=== PATIENT | female | born 1990 | race Caucasian/White ===

== ENCOUNTER 2017-05-01 17:06 | Emergency (ER) | payer SELFPAY ==
--- NOTE | 2017-05-01 17:54 | ER Document Report ---
ED Medical Screen (RME) - General Chief Complaint: Fainting Stated Complaint: POSSIBLE FAINTING Time Seen by Provider: 05/01/17 17:52 Notes: Patient presents stating that she has had multiple episodes of "passing out". She states she has had these in the past many times. She states she has been told that it is due to anxiety and prescribed Xanax. She states Xanax does help. She also states she has been referred to neurology and told that she has simple seizures was placed on Keppra. Patient states she does not currently take Keppra or Xanax. She states that an EEG was never done to diagnose any type of seizure condition. She denies any other recent systemic symptoms such as fevers cough cold congestion vomiting or diarrhea. No trauma. TRAVEL OUTSIDE OF THE [place] IN LAST 30 DAYS: No - Related Data Allergies/Adverse Reactions: sertraline HCl [From Zoloft] Allergy (Verified 05/01/17 17:10) pomogranate Allergy (Uncoded 05/01/17 17:10) white chocolate Allergy (Uncoded 05/01/17 17:10) Home Medications: Current Home Medications No Home Medications 05/01/17 [History] Past Medical History - Social History Family history: Reviewed & Not Pertinent - Past Medical History Cardiac Medical History: Reports: Hx Hypertension Neurological Medical History: Reports: Hx Seizures - no meds Renal/ Medical History: Denies: Hx Peritoneal Dialysis Psychiatric Medical History: Reports: Hx Anxiety Past Surgical History: Denies: Hx Cholecystectomy - Immunizations Immunizations up to date: Yes Hx Diphtheria, Pertussis, Tetanus Vaccination: Yes Physical Exam - Vital signs Vitals: Temp Pulse Resp BP Pulse Ox 98.1 F 81 18 120/79 97 05/01/17 17:11 05/01/17 17:11 05/01/17 17:11 05/01/17 17:11 05/01/17 17:11 Course - Vital Signs Vital signs: Temp Pulse Resp BP Pulse Ox 98.1 F 81 18 120/79 97 05/01/17 17:11 05/01/17 17:11 05/01/17 17:11 05/01/17 17:11 05/01/17 17:11
[2017-05-01 18:14] LABS: ABSOLUTE BASOPHILS # (AUTO) 0.1 10^3/uL (0.0-0.2); ABSOLUTE EOSINOPHILS # (AUTO) 0.1 10^3/uL (0.0-0.6); ABSOLUTE MONOCYTES (AUTO) 0.9 10^3/uL (0.1-1.4); ABSOLUTE NEUT (AUTO) 9.4 10^3/uL (1.7-8.2); BASOPHILS % (AUTO) 0.5 % (0-2); EOSINOPHILS % (AUTO) 0.6 % (0-6); HEMATOCRIT 45.1 % (36.0-47.0); HEMOGLOBIN 15.1 g/dL (12.0-15.5); HGB HCT DIFFERENCE 0.2; LYMPHOCYTES % (AUTO) 16.2 % (13-45); MEAN CORPUSCULAR HEMOGLOBIN 31.9 pg (27.0-33.4); MEAN CORPUSCULAR HGB CONC 33.6 g/dL (32.0-36.0); MEAN CORPUSCULAR VOLUME 95 fl (80-97); MONOCYTES % (AUTO) 7.2 % (3-13); RED BLOOD COUNT 4.74 10^6/uL (3.72-5.28); RED CELL DISTRIBUTION WIDTH 13.4 % (11.5-14.0); SEGMENTED NEUTROPHILS % (AUTO) 75.5 % (42-78); WHITE BLOOD COUNT 12.4 10^3/uL (4.0-10.5)
[2017-05-01 18:33] LABS: ALANINE AMINOTRANSFERASE 20 U/L (9-52); ALBUMIN 4.6 g/dL (3.5-5.0); ALKALINE PHOSPHATASE 76 U/L (38-126); ANION GAP 10 (5-19); ASPARTATE AMINO TRANSFERASE 19 U/L (14-36); BILIRUBIN,DIRECT 0.4 mg/dL (0.0-0.4); BILIRUBIN,TOTAL 0.4 mg/dL (0.2-1.3); BLOOD UREA NITROGEN 6 mg/dL (7-20); CALCIUM 9.9 mg/dL (8.4-10.2); CARBON DIOXIDE 28 mmol/L (22-30); CHLORIDE 104 mmol/L (98-107); CREATININE RESULT 0.68 mg/dL (0.52-1.25); GLUCOSE 75 mg/dL (75-110); POTASSIUM 4.2 mmol/L (3.6-5.0); SODIUM 141.5 mmol/L (137-145); TOTAL PROTEIN 7.8 g/dL (6.3-8.2)
[2017-05-01 18:34] LABS: APPEARANCE,URINE SLIGHTLY-CLOUDY; BILIRUBIN,URINE NEGATIVE (NEGATIVE); GLUCOSE, URINE NEGATIVE (NEGATIVE); KETONES,URINE NEGATIVE (NEGATIVE); LEUKOCYTE ESTERASE,URINE LARGE (NEGATIVE); NITRITE,URINE NEGATIVE (NEGATIVE); PROTEIN,URINE NEGATIVE (NEGATIVE); URINE SPECIFIC GRAVITY 1.008
--- NOTE | 2017-05-01 19:09 | ER Document Report ---
ED General - General Chief Complaint: Fainting Stated Complaint: POSSIBLE FAINTING Time Seen by Provider: 05/01/17 17:52 Mode of Arrival: Ambulatory Information source: Patient TRAVEL OUTSIDE OF THE [place] IN LAST 30 DAYS: No - HPI Patient complains to provider of: Syncope Onset: This afternoon Onset/Duration: Intermittent, Waxing and waning Quality of pain: No pain Exacerbated by: Other - Emotional stress/anxiety Relieved by: Denies Similar symptoms previously: Yes Recently seen / treated by doctor: No Notes: Patient is a 26-year-old female with a history of anxiety who presents to the emergency room today complaining of possible syncopal episodes, they have been happening for the past month or so, intermittently, she had one again today lasting a couple seconds, she reports having a dj vu feeling just prior to the episode, denies any chest pain or shortness of breath, no headache, no nausea or vomiting, she reports that she had these episodes frequently in the past and was placed on anxiety medication including Xanax, which she ran out of her stop taking approximately 1 month ago when the episode started again, she denies any injury when these episodes occur as she can usually feel them coming on and is able to sit down, her has observed these episodes and reports they last just a few seconds at a time, there is no seizure activity noted at the time - Related Data Allergies/Adverse Reactions: sertraline HCl [From Zoloft] Allergy (Verified 05/01/17 17:10) pomogranate Allergy (Uncoded 05/01/17 17:10) white chocolate Allergy (Uncoded 05/01/17 17:10) Past Medical History - General Information source: Patient - Social History Smoking Status: Unknown if Ever Smoked Family History: Reviewed & Not Pertinent, Other - Aunt has seizures - Past Medical History Cardiac Medical History: Reports: Hx Hypertension Neurological Medical History: Reports: Hx Seizures - no meds Renal/ Medical History: Denies: Hx Peritoneal Dialysis Psychiatric Medical History: Reports: Hx Anxiety Past Surgical History: Denies: Hx Cholecystectomy - Immunizations Immunizations up to date: Yes Hx Diphtheria, Pertussis, Tetanus Vaccination: Yes Review of Systems - Review of Systems Constitutional: No symptoms reported EENT: No symptoms reported Cardiovascular: Syncope Respiratory: No symptoms reported Gastrointestinal: No symptoms reported Genitourinary: No symptoms reported Female Genitourinary: No symptoms reported Musculoskeletal: No symptoms reported Skin: No symptoms reported Hematologic/Lymphatic: No symptoms reported Neurological/Psychological: Anxiety -: Yes All other systems reviewed and negative Physical Exam - Vital signs Vitals: Temp Pulse Resp BP Pulse Ox 98.1 F 81 18 120/79 97 05/01/17 17:11 05/01/17 17:11 05/01/17 17:11 05/01/17 17:11 05/01/17 17:11 Interpretation: Normal - General General appearance: Appears well, Alert - HEENT Head: Normocephalic, Atraumatic Eyes: Normal Pupils: PERRL - Respiratory Respiratory status: No respiratory distress Chest status: Nontender Breath sounds: Normal Chest palpation: Normal - Cardiovascular Rhythm: Regular Heart sounds: Normal auscultation Murmur: No - Abdominal Inspection: Normal Distension: No distension Bowel sounds: Normal Tenderness: Nontender Organomegaly: No organomegaly - Back Back: Normal, Nontender - Extremities General upper extremity: Normal inspection, Nontender, Normal color, Normal ROM , Normal temperature General lower extremity: Normal inspection, Nontender, Normal color, Normal ROM , Normal temperature, Normal weight bearing. No: Prince's sign - Neurological Neuro grossly intact: Yes Cognition: Normal Orientation: AAOx4 Kaia Coma Scale Eye Opening: Spontaneous Kaia Coma Scale Verbal: Oriented Kaia Coma Scale Motor: Obeys Commands Kaia Coma Scale Total: 15 Speech: Normal Motor strength normal: LUE, RUE, LLE, RLE Sensory: Normal - Psychological Associated symptoms: Normal affect, Normal mood - Skin Skin Temperature: Warm Skin Moisture: Dry Skin Color: Normal Course - Re-evaluation Re-evalutation: 05/02/17 00:52 Laboratory findings as well as his physical exam exam findings in the emergency room are unremarkable, symptoms are likely related to anxiety or stress, patient was given a prescription for a small amount of Xanax and advised to follow-up with a mental health provider and a neurologist for further evaluation and treatment, patient acknowledges understanding and agreement with this plan - Vital Signs Vital signs: Temp Pulse Resp BP Pulse Ox 98.4 F 74 16 130/86 H 98 05/01/17 19:17 05/01/17 19:17 05/01/17 19:17 05/01/17 19:17 05/01/17 19:17 - Laboratory Result Diagrams: 05/01/17 18:04 05/01/17 18:04 Laboratory results interpreted by me: 05/01/17 05/01/17 05/01/17 18:02 18:04 18:04 WBC 12.4 H Absolute Neutrophils 9.4 H BUN 6 L Urine Urobilinogen 4.0 H Ur Leukocyte Esterase LARGE H - EKG Interpretation by Me EKG shows normal: Sinus rhythm Rate: Normal Rhythm: NSR Discharge - Discharge Clinical Impression: Anxiety Syncope Qualifiers: Syncope type: unspecified Qualified Code(s): R55 - Syncope and collapse Condition: Stable Disposition: HOME, SELF-CARE Instructions: Anxiety ([facility]), Neurologist, Syncopal Episode ([facility]) Additional Instructions: Follow up with your primary care provider, a neurologist and a mental health professional in one to 2 days. Return to the emergency room immediately if symptoms worsen or any additional concerns. Prescriptions: Alprazolam [Xanax 0.25 mg Tablet] 0.25 mg PO Q6HP PRN #20 tab PRN Reason:
[2017-05-01 19:20] VITALS: BP 130/86
--- NOTE | 2017-05-01 23:17 | EKG REPORT ---
SEVERITY:- NORMAL ECG - SINUS RHYTHM : Confirmed by: Mauricio Willson 01-May-2017 23:16:43
== END 2017-05-01 19:21 | disposition home or self-care (01) ==
LOC: ER 17:06
DX: F41.9 Anxiety disorder, unspecified (principal); T42.4X6A Underdosing of benzodiazepines, initial encounter; Z91.128 Patient's intentional underdosing of medication regimen for other reason; Z91.14 Patient's other noncompliance with medication regimen; R55 Syncope and collapse; I10 Essential (primary) hypertension; Z88.8 Allergy status to other drugs, medicaments and biological substances; Z91.018 Allergy to other foods
CPT/HCPCS: 36415; 80053; 81001; 81025; 85025; 93005; 93010; 99284

== ENCOUNTER 2017-05-26 16:04 | Emergency (ER) | payer SELFPAY ==
--- NOTE | 2017-05-26 17:18 | ER Document Report ---
ED General - General Chief Complaint: Head Injury Stated Complaint: HEAD INJURY Time Seen by Provider: 05/26/17 17:03 Mode of Arrival: Ambulatory Information source: Patient Notes: 26-year-old female presents with complaints of anxiety passing out episodes. Patient notes that when she gets anxious she blacks out, patient also notes she has a seizure disorder is supposed be on Keppra but has not been taking the Keppra. Patient denies any fevers or chills denies any nausea vomiting or diarrhea TRAVEL OUTSIDE OF THE [place] IN LAST 30 DAYS: No - HPI Onset: Other Onset/Duration: Intermittent Quality of pain: No pain Severity: Mild Pain Level: Denies Associated symptoms: None Exacerbated by: Denies Relieved by: Denies Similar symptoms previously: Yes Recently seen / treated by doctor: Yes - Related Data Allergies/Adverse Reactions: sertraline HCl [From Zoloft] Allergy (Verified 05/26/17 16:12) pomogranate Allergy (Uncoded 05/26/17 16:12) white chocolate Allergy (Uncoded 05/26/17 16:12) Past Medical History - Social History Smoking Status: Never Smoker Cigarette use (# per day): No Chew tobacco use (# tins/day): No Smoking Education Provided: No Frequency of alcohol use: None Drug Abuse: None Family History: Reviewed & Not Pertinent, Other - Aunt has seizures - Past Medical History Cardiac Medical History: Reports: Hx Hypertension - pre eclampsia Neurological Medical History: Reports: Hx Seizures - no meds Renal/ Medical History: Denies: Hx Peritoneal Dialysis Psychiatric Medical History: Reports: Hx Anxiety Past Surgical History: Denies: Hx Cholecystectomy - Immunizations Immunizations up to date: Yes Hx Diphtheria, Pertussis, Tetanus Vaccination: Yes Review of Systems - Review of Systems Notes: REVIEW OF SYSTEMS: CONSTITUTIONAL : Denies fever, chills, or sweats. Denies recent illness. EENT: Denies eye, ear, throat, or mouth pain or symptoms. Denies nasal or sinus congestion or discharge. Denies throat, tongue, or mouth swelling or difficulty swallowing. CARDIOVASCULAR: Denies chest pain. Denies palpitations or racing or irregular heart beat. Denies ankle edema. RESPIRATORY: Denies cough, cold, or chest congestion. Denies shortness of breath, difficulty breathing, or wheezing. GASTROINTESTINAL: Denies abdominal pain or distention. Denies nausea, vomiting , or diarrhea. Denies blood in vomitus, stools, or per rectum. Denies black, tarry stools. Denies constipation. GENITOURINARY: Denies difficulty urinating, painful urination, burning, frequency, blood in urine, or discharge. FEMALE GENITOURINARY: Denies vaginal bleeding, heavy or abnormal periods, irregular periods. Denies vaginal discharge or odor. MUSCULOSKELETAL: Denies back or neck pain or stiffness. Denies joint pain or swelling. SKIN: Denies rash, lesions or sores. HEMATOLOGIC : Denies easy bruising or bleeding. LYMPHATIC: Denies swollen, enlarged glands. NEUROLOGICAL: Admits to blacking out episode PSYCHIATRIC: Admits to anxiety ALL OTHER SYSTEMS REVIEWED AND NEGATIVE. PHYSICAL EXAMINATION: GENERAL: Well-appearing, well-nourished and in no acute distress. HEAD: Atraumatic, normocephalic. EYES: Pupils equal round and reactive to light, extraocular movements intact, conjunctiva are normal. ENT: Nares patent, oropharynx clear without exudates. Moist mucous membranes. NECK: Normal range of motion, supple without lymphadenopathy LUNGS: Breath sounds clear to auscultation bilaterally and equal. No wheezes rales or rhonchi. HEART: Regular rate and rhythm without murmurs ABDOMEN: Soft, nontender, nondistended abdomen. No guarding, no rebound. No masses appreciated. Female : deferred Musculoskeletal: Normal range of motion, no pitting or edema. No cyanosis. NEUROLOGICAL: Cranial nerves grossly intact. Normal speech, normal gait. Normal sensory, motor exams PSYCH: Normal mood, normal affect. SKIN: Warm, Dry, normal turgor, no rashes or lesions noted. Dictation was performed using [employer] voice recognition software Physical Exam - Vital signs Vitals: Temp Pulse Resp BP Pulse Ox 98.2 F 74 16 128/89 H 98 05/26/17 16:10 05/26/17 16:10 05/26/17 16:10 05/26/17 16:10 05/26/17 16:10 Course - Re-evaluation Re-evalutation: 05/26/17 17:43 I explained to the patient that we will gladly fill her Keppra, lab work is pending, I will not be prescribing her benzos It is noted that patient had another blackout episode, when nurse went into the room and sternal rubbed the patient she awoke immediately 05/26/17 17:46 05/26/17 18:28 Patient otherwise looks well is in no distress I will have her follow-up with neurology for her syncopal episodes but does not appear to be a life- threatening issue given that it occurs after her anxiety kicks in After performing a Medical Screening Examination, I estimate there is LOW risk for INTRACRANIAL HEMORRHAGE, ISCHEMIC CVA, MALIGNANT DYSRHYTHMIA, ACUTE CORONARY SYNDROME, MENINGITIS, PULMONARY EMBOLISM, or SEPSIS thus I consider the discharge disposition reasonable. I have reevaluated this patient multiple times and no significant life threatening changes are noted. The patient and I have discussed the diagnosis and risks, and we agree with discharging home with close follow-up with the understanding that symptoms and presentations can change. We also discussed returning to the Emergency Department immediately if new or worsening symptoms occur. We have discussed the symptoms which are most concerning (e.g., changing or worsening pain, weakness, vomiting, fever) that necessitate immediate return. - Vital Signs Vital signs: Temp Pulse Resp BP Pulse Ox 98.2 F 74 14 128/91 H 99 05/26/17 16:10 05/26/17 16:10 05/26/17 17:22 05/26/17 17:22 05/26/17 17:22 - Laboratory Result Diagrams: 05/26/17 17:26 05/26/17 17:26 Laboratory results interpreted by me: 05/26/17 05/26/17 17:26 17:26 WBC 14.2 H Seg Neutrophils % 79.3 H Absolute Neutrophils 11.3 H BUN 4 L Discharge - Discharge Clinical Impression: Anxiety, Seizures Syncope Qualifiers: Syncope type: unspecified Qualified Code(s): R55 - Syncope and collapse Condition: Stable Disposition: HOME, SELF-CARE Instructions: Syncopal Episode ([facility]) Additional Instructions: Please follow-up with the care plan provided to you as well as outpatient psychiatric care Prescriptions: Levetiracetam [Keppra 500 mg Tablet] 1,000 mg PO Q12 #60 tablet Referrals: BECCA ON MD [ACTIVE STAFF] - Follow up as needed
[2017-05-26] MEDS ORDERED: LEVETIRACETAM 500 MG TABLET PO ONE (17:38)
[2017-05-26 18:09] LABS: ABSOLUTE LYMPHOCYTES (AUTO) 2.1 10^3/uL (0.5-4.7); ABSOLUTE MONOCYTES (AUTO) 0.7 10^3/uL (0.1-1.4); ABSOLUTE NEUT (AUTO) 11.3 10^3/uL (1.7-8.2); BASOPHILS % (AUTO) 0.3 % (0-2); EOSINOPHILS % (AUTO) 0.1 % (0-6); HEMATOCRIT 43.4 % (36.0-47.0); HEMOGLOBIN 14.9 g/dL (12.0-15.5); HGB HCT DIFFERENCE 1.3; MEAN CORPUSCULAR HEMOGLOBIN 32.1 pg (27.0-33.4); MEAN CORPUSCULAR HGB CONC 34.2 g/dL (32.0-36.0); MEAN CORPUSCULAR VOLUME 94 fl (80-97); MONOCYTES % (AUTO) 5.3 % (3-13); RED BLOOD COUNT 4.63 10^6/uL (3.72-5.28); RED CELL DISTRIBUTION WIDTH 13.1 % (11.5-14.0); SEGMENTED NEUTROPHILS % (AUTO) 79.3 % (42-78); WHITE BLOOD COUNT 14.2 10^3/uL (4.0-10.5)
[2017-05-26 18:24] LABS: ALANINE AMINOTRANSFERASE 30 U/L (9-52); ALBUMIN 4.5 g/dL (3.5-5.0); ALKALINE PHOSPHATASE 101 U/L (38-126); ANION GAP 15 (5-19); ASPARTATE AMINO TRANSFERASE 17 U/L (14-36); BILIRUBIN,DIRECT 0.3 mg/dL (0.0-0.4); BILIRUBIN,TOTAL 0.5 mg/dL (0.2-1.3); BLOOD UREA NITROGEN 4 mg/dL (7-20); CALCIUM 9.8 mg/dL (8.4-10.2); CARBON DIOXIDE 24 mmol/L (22-30); CHLORIDE 103 mmol/L (98-107); CREATININE RESULT 0.68 mg/dL (0.52-1.25); GLUCOSE 89 mg/dL (75-110); POTASSIUM 3.9 mmol/L (3.6-5.0); SODIUM 141.6 mmol/L (137-145); TOTAL PROTEIN 7.8 g/dL (6.3-8.2)
[2017-05-26 18:42] VITALS: BP 131/95
== END 2017-05-26 18:36 | disposition home or self-care (01) ==
LOC: ER 16:04
DX: F41.9 Anxiety disorder, unspecified (principal); R55 Syncope and collapse; G40.909 Epilepsy, unspecified, not intractable, without status epilepticus; T42.6X6A Underdosing of other antiepileptic and sedative-hypnotic drugs, initial encounter; Z91.14 Patient's other noncompliance with medication regimen; Z88.8 Allergy status to other drugs, medicaments and biological substances; Z91.018 Allergy to other foods
CPT/HCPCS: 36415; 80053; 85025; 99284

== ENCOUNTER 2017-06-07 17:14 | Emergency (ER) | payer SELFPAY ==
[2017-06-07] MEDS ORDERED: LEVETIRACETAM 500 MG TABLET PO ONE (17:53)
--- NOTE | 2017-06-07 17:58 | ER Document Report ---
ED Seizure - General Chief Complaint: Seizure Stated Complaint: POSSIBLE SEIZURE Time Seen by Provider: 06/07/17 17:29 Mode of Arrival: Ambulatory Information source: Patient - HPI Patient complains to provider of: History of seizures Quality of pain: Achy Severity: Mild Pain Level: 1 Current seizure medications: Keppra Preceding symptoms/context: Missed dose of meds Character of seizure: Complete loss/conscious Post-ictal symptoms: None Injuries: None Associated Symptoms: None Notes: Patient is a 26-year-old female with a history of seizures who presents today after having a seizure, she ran out of her Keppra a few days ago, her mother witnessed the seizure today and stated it lasted about 5 seconds, she does state she hit her head but has very mild pain and no other symptoms at time of my evaluation, she states she attempted to go to the urgent care center but they were unwilling to provide her with a prescription for her Keppra and sent her to the emergency room instead, she denies any preceding illness, no nausea, vomiting or diarrhea, no fever or chills, she simply states that she missed her medications because she ran out and has been unable to follow-up to get refills - Related Data Allergies/Adverse Reactions: sertraline HCl [From Zoloft] Allergy (Verified 06/07/17 17:20) pomogranate Allergy (Uncoded 06/07/17 17:20) white chocolate Allergy (Uncoded 06/07/17 17:20) Past Medical History - General Information source: Patient - Social History Smoking Status: Unknown if Ever Smoked Family History: Reviewed & Not Pertinent, Other - Aunt has seizures - Past Medical History Cardiac Medical History: Reports: Hx Hypertension - pre eclampsia Neurological Medical History: Reports: Hx Seizures - keppra Renal/ Medical History: Denies: Hx Peritoneal Dialysis Psychiatric Medical History: Reports: Hx Anxiety Past Surgical History: Denies: Hx Cholecystectomy - Immunizations Immunizations up to date: Yes Hx Diphtheria, Pertussis, Tetanus Vaccination: Yes Review of Systems - Review of Systems Constitutional: No symptoms reported EENT: No symptoms reported Cardiovascular: No symptoms reported Respiratory: No symptoms reported Gastrointestinal: No symptoms reported Genitourinary: No symptoms reported Female Genitourinary: No symptoms reported Musculoskeletal: No symptoms reported Skin: No symptoms reported Hematologic/Lymphatic: No symptoms reported Neurological/Psychological: Seizure -: Yes All other systems reviewed and negative Physical Exam - Vital signs Vitals: Temp Pulse Resp BP Pulse Ox 98.5 F 78 14 142/91 H 98 06/07/17 17:21 06/07/17 17:21 06/07/17 17:21 06/07/17 17:21 06/07/17 17:21 Interpretation: Normal - General General appearance: Appears well, Alert - HEENT Head: Normocephalic, Atraumatic Eyes: Normal Pupils: PERRL - Respiratory Respiratory status: No respiratory distress Chest status: Nontender Breath sounds: Normal Chest palpation: Normal - Cardiovascular Rhythm: Regular Heart sounds: Normal auscultation Murmur: No - Abdominal Inspection: Normal Distension: No distension Bowel sounds: Normal Tenderness: Nontender Organomegaly: No organomegaly - Back Back: Normal, Nontender - Extremities General upper extremity: Normal inspection, Nontender, Normal color, Normal ROM , Normal temperature General lower extremity: Normal inspection, Nontender, Normal color, Normal ROM , Normal temperature, Normal weight bearing. No: Prince's sign - Neurological Neuro grossly intact: Yes Cognition: Normal Orientation: AAOx4 Kaia Coma Scale Eye Opening: Spontaneous Kaia Coma Scale Verbal: Oriented Unity Coma Scale Motor: Obeys Commands Kaia Coma Scale Total: 15 Speech: Normal Motor strength normal: LUE, RUE, LLE, RLE Sensory: Normal - Psychological Associated symptoms: Normal affect, Normal mood - Skin Skin Temperature: Warm Skin Moisture: Dry Skin Color: Normal Course - Re-evaluation Re-evalutation: 06/07/17 17:57 Patient with history of seizures, had a short lasting seizure earlier today, recently ran out of her medications, prescription for Keppra, she takes 1000 mg twice a day, she was given prescription and advised to follow-up with her primary care provider and neurologist or return if any additional concerns, I did offer to perform blood work and urine sample while patient is in the department which she declined, she denies any injury seizure today - Vital Signs Vital signs: Temp Pulse Resp BP Pulse Ox 98.5 F 78 14 142/91 H 98 06/07/17 17:21 06/07/17 17:21 06/07/17 17:21 06/07/17 17:21 06/07/17 17:21 Discharge - Discharge Clinical Impression: Seizure Condition: Stable Disposition: HOME, SELF-CARE Instructions: Seizure, Known Epileptic ([facility]) Additional Instructions: Follow up with your primary care provider in one to 2 days. Return to the emergency room immediately if symptoms worsen or any additional concerns. Prescriptions: Levetiracetam [Keppra 500 mg Tablet] 1,000 mg PO Q12 #120 tablet
[2017-06-07 18:08] VITALS: BP 133/91
== END 2017-06-07 18:08 | disposition home or self-care (01) ==
LOC: ER 17:14
DX: R56.9 Unspecified convulsions (principal); T42.6X6A Underdosing of other antiepileptic and sedative-hypnotic drugs, initial encounter; Z91.128 Patient's intentional underdosing of medication regimen for other reason; Z91.14 Patient's other noncompliance with medication regimen; Z88.8 Allergy status to other drugs, medicaments and biological substances; Z91.018 Allergy to other foods
CPT/HCPCS: 99284

== ENCOUNTER 2017-09-11 21:36 | Emergency (ER) | payer SELFPAY ==
[2017-09-11] MEDS ORDERED: LEVETIRACETAM 500 MG TABLET PO ONE (22:45)
[2017-09-11] MEDS ORDERED: DIAZEPAM 5 MG TABLET PO ONE (22:45)
--- NOTE | 2017-09-11 22:47 | ER Document Report ---
ED General - General Chief Complaint: Seizure Stated Complaint: POSSIBLE SEIZURE Time Seen by Provider: 09/11/17 21:46 Notes: Patient is a 27-year-old female with a past medical history of epilepsy and pseudoseizures who presents after having a generalized tonic-clonic seizure lasting approximately 3-4 minutes followed by postictal phase. This was witnessed by her . She has no recollection of the event. She apparently bit her tongue and urinated herself during the episode. Patient notes that she ran out of her Keppra 1 week ago due to lack of access to her primary care physician. She states she believes her last seizure was several months ago. She notes that often when she comes off her seizure medications for any longer than 1 week she tends to have seizures. At time of my assessment she denies any ongoing symptoms other than feeling somewhat anxious. She denies any focal weakness, numbness, headache or altered mental status. TRAVEL OUTSIDE OF THE [place] IN LAST 30 DAYS: No - Related Data Allergies/Adverse Reactions: sertraline HCl [From Zoloft] Allergy (Verified 06/07/17 17:20) pomogranate Allergy (Uncoded 06/07/17 17:20) white chocolate Allergy (Uncoded 06/07/17 17:20) Past Medical History - General Information source: Patient - Social History Smoking Status: Never Smoker Frequency of alcohol use: None Drug Abuse: None Lives with: Spouse/Significant other Family History: Reviewed & Not Pertinent, Other - Aunt has seizures Patient has suicidal ideation: No Patient has homicidal ideation: No - Past Medical History Cardiac Medical History: Reports: Hx Hypertension - pre eclampsia Neurological Medical History: Reports: Hx Seizures - keppra Renal/ Medical History: Denies: Hx Peritoneal Dialysis Psychiatric Medical History: Reports: Hx Anxiety Past Surgical History: Denies: Hx Cholecystectomy - Immunizations Immunizations up to date: Yes Hx Diphtheria, Pertussis, Tetanus Vaccination: Yes Review of Systems - Review of Systems Notes: Constitutional: Negative for fever. HENT: Negative for sore throat. Eyes: Negative for visual changes. Cardiovascular: Negative for chest pain. Respiratory: Negative for shortness of breath. Gastrointestinal: Negative for abdominal pain, vomiting or diarrhea. Genitourinary: Negative for dysuria. Musculoskeletal: Negative for back pain. Skin: Negative for rash. Neurological: Negative for headaches, weakness or numbness. 10 point ROS negative except as marked above and in HPI. Physical Exam - Vital signs Vitals: Resp Pulse Ox 19 98 09/11/17 21:51 09/11/17 21:51 Interpretation: Normal Notes: PHYSICAL EXAMINATION: GENERAL: Well-appearing, well-nourished and in no acute distress. HEAD: Atraumatic, normocephalic. EYES: Pupils equal round and reactive to light, extraocular movements intact, sclera anicteric, conjunctiva are normal. ENT: nares patent, oropharynx clear without exudates. Moist mucous membranes. NECK: Normal range of motion, supple without lymphadenopathy LUNGS: Breath sounds clear to auscultation bilaterally and equal. No wheezes rales or rhonchi. HEART: Regular rate and rhythm without murmurs ABDOMEN: Soft, nontender, normoactive bowel sounds. No guarding, no rebound. No masses appreciated. EXTREMITIES: Normal range of motion, no pitting or edema. No cyanosis. NEUROLOGICAL: Face symmetric. Tongue protrudes midline. Extraocular motions intact. Pupils are 2 mm and equally reactive. Normal speech, normal gait. 5 out of 5 strength in both the distal and proximal upper and lower extremities bilaterally. Sensation is grossly intact throughout. Finger to nose testing normal. Pronator drift normal. PSYCH: Normal mood, normal affect. SKIN: Warm, Dry, normal turgor, no rashes or lesions noted. Course - Re-evaluation Re-evalutation: 09/11/17 22:45 Presentation of well-appearing patient after having a seizure. Patient has a known history of seizures. Patient has been off of her Keppra for 1 week. The patient has returned to baseline without intervention. No focal neurologic deficits. No infectious symptoms, vital sign abnormalities, or evidence of trauma. No indication for laboratories or imaging based on reassuring evaluation and known history of seizures. The patient will be discharged home with recommendations for close follow-up with primary care as well as their neurologist. I will prescribe 3 months of the patient's Keppra and have instructed her follow-up at her earliest ability. At this time will discharge with return precautions and follow-up recommendations. Verbal discharge instructions given a the bedside and opportunity for questions given. Medication warnings reviewed. Patient is in agreement with this plan and has verbalized understanding of return precautions and the need for primary care follow-up in the next 24-72 hours. - Vital Signs Vital signs: Temp Pulse Resp BP Pulse Ox 98.0 F 25 H 122/87 H 100 09/11/17 21:52 09/11/17 23:01 09/11/17 23:01 09/11/17 23:01 Discharge - Discharge Clinical Impression: Seizure, Anxiety Condition: Good Disposition: HOME, SELF-CARE Additional Instructions: Today you had a seizure. It is very important that you do not engage in any activities that could result in severe injury should you have a seizure. Specifically, do not drive a vehicle, go into a body of water, take a bath, climb ladders, or operate any heavy machinery until you have been cleared by your neurologist. Please return to the ED immediately if you have multiple seizures close together, develop a severe headache, weakness, numbness, difficulty speaking, have a seizure in which you do not return to normal within 1 hour of the seizure, or have any other symptoms that are concerning to you. Prescriptions: Levetiracetam [Keppra 500 mg Tablet] 500 mg PO Q12 #60 tablet
[2017-09-11 23:09] VITALS: BP 122/87
== END 2017-09-11 23:22 | disposition home or self-care (01) ==
LOC: ER 21:36
DX: G40.909 Epilepsy, unspecified, not intractable, without status epilepticus (principal); F41.9 Anxiety disorder, unspecified; T42.6X6A Underdosing of other antiepileptic and sedative-hypnotic drugs, initial encounter; Z91.128 Patient's intentional underdosing of medication regimen for other reason
CPT/HCPCS: 99283

== ENCOUNTER 2017-10-14 18:07 | Emergency (ER) | payer MEDICAID, OTHER ==
[2017-10-14] MEDS ORDERED: OXYCODONE HCL IR 5 MG TABLET PO ONE (19:21)
--- NOTE | 2017-10-14 19:52 | RADIOLOGY REPORT (SQ) ---
EXAM DESCRIPTION: ANKLE RIGHT COMPLETE COMPLETED DATE/TIME: 10/14/2017 7:36 pm REASON FOR STUDY: deformity COMPARISON: None. NUMBER OF VIEWS: Three views. TECHNIQUE: AP, lateral, and oblique radiographic images acquired of the right ankle. LIMITATIONS: None. FINDINGS: MINERALIZATION: Normal. BONES: No acute fracture or dislocation. No worrisome bone lesions. JOINTS: No effusions. SOFT TISSUES: Mild lateral soft tissue swelling. OTHER: No other significant finding. IMPRESSION: Mild lateral soft tissue swelling without underlying osseous injury. TECHNICAL DOCUMENTATION: JOB ID: [id number] [employer]- All Rights Reserved
--- NOTE | 2017-10-14 19:54 | ER Document Report ---
HPI - HPI Pain Level: 5 Notes: Patient is a 27-year-old female with a history of epilepsy who presents the ED complaining of right ankle pain status post twist injury. Patient states that she believes she had another seizure and injured her ankle during her episode. Patient states that having seizures not new for her and she takes Keppra for it. Patient states that she feels well otherwise aside from the swelling to her right lateral ankle. Patient has not been able to weight-bear because of the pain. No other concerns or complaints at this time. Patient still able to move her toes. Denies any headache, fever, head injury, neck pain, changes in vision/speech/mentation/hearing, URI, sore throat, chest pain, palpitations, syncope, cough, shortness of breath, wheeze, dyspnea, abdominal pain, nausea/ vomiting/diarrhea, urinary retention, dysuria, hematuria, loss of control of bowel or bladder, numbness/tingling, saddle anesthesia, muscle paralysis/ weakness, or rash. - ROS Systems Reviewed and Negative: Yes All other systems reviewed and negative - REPRODUCTIVE Reproductive: DENIES: : Past Medical History - Social History Smoking Status: Never Smoker Family History: Reviewed & Not Pertinent, Other - Aunt has seizures - Past Medical History Cardiac Medical History: Reports: Hx Hypertension - pre eclampsia Neurological Medical History: Reports: Hx Seizures - keppra Renal/ Medical History: Denies: Hx Peritoneal Dialysis Psychiatric Medical History: Reports: Hx Anxiety Past Surgical History: Denies: Hx Cholecystectomy - Immunizations Immunizations up to date: Yes Hx Diphtheria, Pertussis, Tetanus Vaccination: Yes Vertical Provider Document - CONSTITUTIONAL Agree With Documented VS: Yes Notes: PHYSICAL EXAMINATION: GENERAL: Well-appearing, well-nourished and in no acute distress. LUNGS: Breath sounds clear to auscultation bilaterally and equal. No wheezes rales or rhonchi. HEART: Regular rate and rhythm without murmurs, rubs, gallops. Musculoskeletal: Rt ankle/foot: + swelling lateral malleolus. LROM to passive/ active. Strength 4+/5. + tenderness to the lateral malleolus. Achilles intact. N/V intact distal. No other bony tenderness appreciated. Extremities: No cyanosis, clubbing, or edema b/l. Peripheral pulses 2+. Capillary refill less than 3 seconds. NEUROLOGICAL: Normal speech. Normal sensory, motor exams PSYCH: Normal mood, normal affect. SKIN: Warm, Dry, normal turgor, no rashes or lesions noted. - INFECTION CONTROL TRAVEL OUTSIDE OF THE [place] IN LAST 30 DAYS: No - RESPIRATORY O2 Sat by Pulse Oximetry: 97 Course - Re-evaluation Re-evalutation: 10/14/17 20:01 Patient is an afebrile, well-hydrated, 27-year-old female who presents ED with right lateral ankle pain, suspect strain versus sprain. Vitals are stable. PE is otherwise unremarkable for any focal neurological deficits, neurovascular compromise, obvious tendon/ligament rupture, obvious fracture/dislocation, septic joint. X-ray was unremarkable for any acute pathology aside from soft tissue swelling. Ankle stirrup splint was given as well as crutches. I was told prior to my evaluation that there is a gross deformity so pain medication was ordered at that time. I will not be sending the patient home with narcotics , but rather I will be sending her home with naproxen. Conservative measures for symptoms otherwise. Recheck with your PCM in 3-5 days. Consider consult orthopedics and physical therapy for ongoing/worsening symptoms. Return to the ED with any worsening/concerning symptoms otherwise as reviewed discharge. Patient is in agreement. - Vital Signs Vital signs: Temp Pulse Resp BP Pulse Ox 98.5 F 111 H 18 125/95 H 97 10/14/17 18:13 10/14/17 18:13 10/14/17 18:13 10/14/17 18:13 10/14/17 18:13 Discharge - Discharge Clinical Impression: Right ankle pain Qualifiers: Chronicity: acute Qualified Code(s): M25.571 - Pain in right ankle and joints of right foot Condition: Stable Disposition: HOME, SELF-CARE Instructions: Ankle Stirrup Splint ([facility]), Use of Crutches ([facility]), Ice & Elevation ([facility]), Sprained Ankle ([facility]) Additional Instructions: Rest, Ice, Compression, Elevation Use crutches/splint as directed Tylenol/ibuprofen as needed Light stretches daily Strength exercises as able Moist heat and massage may help F/u with your PCP in 3-5 days for a recheck Consider consult(s) with Orthopedics/physical therapy for ongoing/worsening symptoms Return to the ED with any worsening symptoms and/or development of fever, headache, chest pain, palpitations, syncope, shortness of breath, trouble breathing, abdominal pain, n/v/d, muscle weakness/paralysis, numbness/tingling, swelling, redness, or other worsening symptoms that are concerning to you. Prescriptions: Naproxen 500 mg PO BID PRN #30 tablet PRN Reason: Forms: Elevated Blood Pressure Referrals: [facility] [Provider Group] - Follow up as needed
[2017-10-14] MEDS ORDERED: HYDROCODONE/ACETAMINOPHEN 5-325 MG (6 TAB/ER DISP) PO PRN (20:48)
[2017-10-14 21:11] VITALS: BP 121/76
== END 2017-10-14 21:11 | disposition home or self-care (01) ==
LOC: ER 18:07
DX: M25.571 Pain in right ankle and joints of right foot (principal); G40.909 Epilepsy, unspecified, not intractable, without status epilepticus
CPT/HCPCS: 99283; 73610; L1902

== ENCOUNTER 2018-01-11 07:15 | Emergency (ER) | payer SELFPAY ==
[2018-01-11] MEDS ORDERED: LEVETIRACETAM 500 MG TABLET PO ONE (07:34)
[2018-01-11 07:59] LABS: ABSOLUTE BASOPHILS # (AUTO) 0.1 10^3/uL (0.0-0.2); ABSOLUTE EOSINOPHILS # (AUTO) 0.3 10^3/uL (0.0-0.6); ABSOLUTE LYMPHOCYTES (AUTO) 2.4 10^3/uL (0.5-4.7); ABSOLUTE MONOCYTES (AUTO) 0.9 10^3/uL (0.1-1.4); ABSOLUTE NEUT (AUTO) 8.6 10^3/uL (1.7-8.2); BASOPHILS % (AUTO) 0.5 % (0-2); EOSINOPHILS % (AUTO) 2.1 % (0-6); HEMATOCRIT 44.3 % (36.0-47.0); HEMOGLOBIN 15.3 g/dL (12.0-15.5); LYMPHOCYTES % (AUTO) 19.6 % (13-45); MEAN CORPUSCULAR HEMOGLOBIN 31.8 pg (27.0-33.4); MEAN CORPUSCULAR HGB CONC 34.4 g/dL (32.0-36.0); MEAN CORPUSCULAR VOLUME 92 fl (80-97); MONOCYTES % (AUTO) 7.3 % (3-13); PLATELET COUNT 299 10^3/uL (150-450); RED CELL DISTRIBUTION WIDTH 12.9 % (11.5-14.0); SEGMENTED NEUTROPHILS % (AUTO) 70.5 % (42-78); TOTAL CELLS COUNTED % (AUTO) 100 %; WHITE BLOOD COUNT 12.2 10^3/uL (4.0-10.5)
[2018-01-11 08:15] LABS: ALANINE AMINOTRANSFERASE 30 U/L (9-52); ALBUMIN 4.4 g/dL (3.5-5.0); ALKALINE PHOSPHATASE 89 U/L (38-126); ANION GAP 15 (5-19); ASPARTATE AMINO TRANSFERASE 23 U/L (14-36); BILIRUBIN,DIRECT 0.2 mg/dL (0.0-0.4); BILIRUBIN,TOTAL 0.2 mg/dL (0.2-1.3); BLOOD UREA NITROGEN 10 mg/dL (7-20); CALCIUM 9.7 mg/dL (8.4-10.2); CARBON DIOXIDE 22 mmol/L (22-30); CHLORIDE 106 mmol/L (98-107); GLUCOSE 103 mg/dL (75-110); SODIUM 143.2 mmol/L (137-145); TOTAL PROTEIN 7.8 g/dL (6.3-8.2)
--- NOTE | 2018-01-11 08:16 | ER Document Report ---
ED Seizure - General Chief Complaint: Probable Seizure Stated Complaint: POSSIBLE SEIZURES Time Seen by Provider: 01/11/18 07:20 Mode of Arrival: Ambulatory Information source: Patient Notes: 27-year-old female with a history of seizure disorder that started in 2007 with small seizures was controlled adequately on Keppra 1000 mg twice daily. She was diagnosed when they lived in [place]. She has since moved here and is living with her father and was in the emergency department here at [facility] and was decreased to 500 twice a day and since then she has been having weekly seizures. She ran out of the Keppra on Monday she does not have a PCP or insurance to get the medication and she has had seizures every other day. This morning at 6 she had her normal aura with a taste change in her mouth and had an unwitnessed seizures and when she woke up she had bitten her tongue and had urinated on herself. At this time she has no pain. No fever or chills. No sore throat runny nose or cough. No chest or abdominal pain. No nausea vomiting or diarrhea. No dysuria. No rash. - Related Data Allergies/Adverse Reactions: NSAIDS (Non-Steroidal Anti-Inflamma Allergy (Verified 10/14/17 20:05) sertraline HCl [From Zoloft] Allergy (Verified 10/14/17 18:08) pomogranate Allergy (Uncoded 10/14/17 18:08) white chocolate Allergy (Uncoded 10/14/17 18:08) Past Medical History - General Information source: Patient - Social History Smoking Status: Never Smoker Frequency of alcohol use: None Drug Abuse: None Occupation: Unemployed Lives with: Parents Family History: Reviewed & Not Pertinent, Other - Aunt has seizures - Past Medical History Cardiac Medical History: Reports: Hx Hypertension - pre eclampsia Neurological Medical History: Reports: Hx Seizures - keppra Renal/ Medical History: Denies: Hx Peritoneal Dialysis Psychiatric Medical History: Reports: Hx Anxiety Surgical Hx: Negative - Immunizations Immunizations up to date: Yes Hx Diphtheria, Pertussis, Tetanus Vaccination: Yes Review of Systems - Review of Systems Constitutional: No symptoms reported EENT: No symptoms reported Cardiovascular: No symptoms reported Respiratory: No symptoms reported Gastrointestinal: No symptoms reported Genitourinary: No symptoms reported Female Genitourinary: No symptoms reported Musculoskeletal: No symptoms reported Skin: No symptoms reported Hematologic/Lymphatic: No symptoms reported Neurological/Psychological: See HPI Physical Exam - Vital signs Vitals: Temp Pulse Resp BP Pulse Ox 97.5 F 98 20 142/93 H 100 01/11/18 07:21 01/11/18 07:21 01/11/18 07:21 01/11/18 07:21 01/11/18 07:21 Interpretation: Normal - General General appearance: Appears well, Alert - HEENT Head: Normocephalic, Atraumatic Eyes: Normal Extraocular movements intact: Yes Pupils: PERRL Nerve palsy: No Visual saldana normal: Yes Mouth/Lips: Other - Angular willams latest, blood source that patient states she had when she bit her tongue not seen Pharynx: Normal Neck: Supple. No: Lymphadenopathy - Respiratory Respiratory status: No respiratory distress Chest status: Nontender Breath sounds: Normal Chest palpation: Normal - Cardiovascular Rhythm: Regular Heart sounds: Normal auscultation Murmur: No - Abdominal Inspection: Normal Distension: No distension Bowel sounds: Normal Tenderness: Nontender Organomegaly: No organomegaly - Back Back: Normal, Nontender. No: CVA tenderness - Extremities General upper extremity: Normal inspection, Nontender, Normal color, Normal ROM , Normal temperature General lower extremity: Normal inspection, Nontender, Normal color, Normal ROM , Normal temperature, Normal weight bearing. No: Prince's sign - Neurological Neuro grossly intact: Yes Cognition: Normal Orientation: AAOx4 [place] Coma Scale Eye Opening: Spontaneous [place] Coma Scale Verbal: Oriented [place] Coma Scale Motor: Obeys Commands [place] Coma Scale Total: 15 Speech: Normal Motor strength normal: LUE, RUE, LLE, RLE Sensory: Normal - Psychological Associated symptoms: Normal affect, Anxious. No: Confused - Skin Skin Temperature: Warm Skin Moisture: Dry Skin Color: Normal Skin irregularity: negative: Rash Course - Vital Signs Vital signs: Temp Pulse Resp BP Pulse Ox 97.5 F 98 20 142/93 H 100 01/11/18 07:21 01/11/18 07:21 01/11/18 07:21 01/11/18 07:21 01/11/18 07:21 - Laboratory Result Diagrams: 01/11/18 07:40 01/11/18 07:40 Laboratory results interpreted by me: 01/11/18 01/11/18 07:40 09:20 WBC 12.2 H Absolute Neutrophils 8.6 H Ur Leukocyte Esterase MODERATE H Discharge - Discharge Clinical Impression: Seizure disorder Condition: Good Disposition: HOME, SELF-CARE Instructions: [facility], Seizure, Known Epileptic ([facility]) Additional Instructions: keppra 1000mg bid #60 will be filled, [facility] sent to [facility] see neurologist Prescriptions: Levetiracetam [Keppra 500 mg Tablet] 1,000 mg PO Q12 #120 tablet Referrals: BECCA NO MD [NO LOCAL MD] - Follow up as needed
[2018-01-11 10:08] LABS: APPEARANCE,URINE CLEAR; BILIRUBIN,URINE NEGATIVE (NEGATIVE); COLOR,URINE STRAW; GLUCOSE, URINE NEGATIVE (NEGATIVE); KETONES,URINE NEGATIVE (NEGATIVE); LEUKOCYTE ESTERASE,URINE MODERATE (NEGATIVE); NITRITE,URINE NEGATIVE (NEGATIVE); PROTEIN,URINE NEGATIVE (NEGATIVE); URINE SPECIFIC GRAVITY 1.004; UROBILINOGEN,URINE NEGATIVE mg/dL (<2.0)
[2018-01-11 10:49] VITALS: BP 141/87
== END 2018-01-11 10:49 | disposition home or self-care (01) ==
LOC: ER 07:15
DX: G40.909 Epilepsy, unspecified, not intractable, without status epilepticus (principal)
CPT/HCPCS: 36415; 80053; 81001; 84703; 85025; 99284

== ENCOUNTER 2018-03-18 16:08 | Emergency (ER) | payer SELFPAY ==
[2018-03-18] MEDS ORDERED: LEVETIRACETAM 500 MG/NACL-ISO 500 MG/100 ML RTUPB IV ONE (16:41)
--- NOTE | 2018-03-18 17:03 | ER Document Report ---
ED Seizure - General Chief Complaint: Probable Seizure Stated Complaint: POSSIBLE SEIZURE Time Seen by Provider: 03/18/18 16:24 Mode of Arrival: Medic Information source: Patient Notes: Patient had a witnessed seizure around 3:15 today. Patient was incontinent of urine, vomited and bit her tongue. Patient was observed to have generalized tonic-clonic seizures. Patient does have a history of seizures and has been off of her medication for the past week as she does not have a primary doctor. Patient denies any recent illness. Patient complains of headache at this time patient without any other complaints. No difficulty breathing. - HPI Patient complains to provider of: History of seizures Quality of pain: Achy Pain Level: 2 Episode witnessed (by whom): Yes - Family member Current seizure medications: Keppra Preceding symptoms/context: Missed dose of meds Character of seizure: Generalized shaking, Incontinent bladder Post-ictal symptoms: Headache Injuries: Bit tongue Associated Symptoms: None - Related Data Allergies/Adverse Reactions: NSAIDS (Non-Steroidal Anti-Inflamma Allergy (Verified 10/14/17 20:05) sertraline HCl [From Zoloft] Allergy (Verified 10/14/17 18:08) pomogranate Allergy (Uncoded 10/14/17 18:08) white chocolate Allergy (Uncoded 10/14/17 18:08) Past Medical History - General Information source: Patient - Social History Smoking Status: Never Smoker Chew tobacco use (# tins/day): No Frequency of alcohol use: None Drug Abuse: None Occupation: None Lives with: Family Family History: Reviewed & Not Pertinent, Other - Aunt has seizures Patient has suicidal ideation: No Patient has homicidal ideation: No - Past Medical History Cardiac Medical History: Reports: Hx Hypertension - pre eclampsia Neurological Medical History: Reports: Hx Seizures - keppra Renal/ Medical History: Denies: Hx Peritoneal Dialysis Psychiatric Medical History: Reports: Hx Anxiety Surgical Hx: Negative Past Surgical History: Denies: Hx Cholecystectomy - Immunizations Immunizations up to date: Yes Hx Diphtheria, Pertussis, Tetanus Vaccination: Yes Review of Systems - Review of Systems Constitutional: No symptoms reported. denies: Fever, Recent illness EENT: No symptoms reported Cardiovascular: No symptoms reported. denies: Chest pain Respiratory: No symptoms reported. denies: Cough, Hurts to breathe, Short of breath Gastrointestinal: Vomiting. denies: Abdominal pain Genitourinary: No symptoms reported Female Genitourinary: No symptoms reported. denies: Musculoskeletal: No symptoms reported. denies: Neck pain Skin: No symptoms reported Hematologic/Lymphatic: No symptoms reported Neurological/Psychological: Seizure, Headaches Physical Exam - Vital signs Vitals: Resp BP Pulse Ox 20 131/109 H 96 03/18/18 16:16 03/18/18 16:16 03/18/18 16:16 - General General appearance: Appears well, Alert In distress: None - HEENT Head: Normocephalic, Atraumatic Eyes: Normal Conjunctiva: Normal Nasal: Normal Mouth/Lips: Other - abrasion to left side of tongue Mucous membranes: Normal Pharynx: Normal Neck: Normal, Supple. No: Lymphadenopathy, Meningismus - Respiratory Respiratory status: No respiratory distress Chest status: Nontender Breath sounds: Normal. No: Rales, Rhonchi, Stridor, Wheezing Chest palpation: Normal - Cardiovascular Rhythm: Regular Heart sounds: S1 appreciated, S2 appreciated Murmur: No - Abdominal Inspection: Normal Tenderness: Nontender - Back Back: Normal, Nontender. No: CVA tenderness - Extremities General upper extremity: Normal inspection, Normal ROM General lower extremity: Normal inspection, Normal ROM - Neurological Neuro grossly intact: Yes Cognition: Normal Kaia Coma Scale Eye Opening: Spontaneous [place] Coma Scale Verbal: Oriented [place] Coma Scale Motor: Obeys Commands [place] Coma Scale Total: 15 Speech: Normal. No: Dysarthria Cranial nerves: Normal. No: Facial palsy, Tongue deviation Motor strength normal: LUE, RUE, LLE, RLE - Psychological Associated symptoms: Normal affect, Normal mood - Skin Skin Temperature: Warm Skin Moisture: Dry Skin irregularity: other - abrasion to tongue Course - Re-evaluation Re-evalutation: 03/18/18 18:03 Breakthrough seizure with known seizure disorder and previous neurology evaluation. Patient now returned to neuro baseline. Labs reviewed. No indication of new or acute process. Patient appears safe for discharge with observation and close outpatient followup with primary care provider or neurology. Seizure warnings discussed with patient and family. - Vital Signs Vital signs: Temp Pulse Resp BP Pulse Ox 98.0 F 20 123/91 H 98 03/18/18 16:25 03/18/18 18:01 03/18/18 18:00 03/18/18 18:01 Discharge - Discharge Clinical Impression: Seizure disorder Condition: Stable Disposition: HOME, SELF-CARE Instructions: Seizure, Known Epileptic ([facility]) Additional Instructions: Return immediately for any new or worsening symptoms Followup with your primary care provider, call tomorrow to make a followup appointment Do not drive or operate machinery until cleared to do so by her primary doctor or neurologist. Prescriptions: Levetiracetam [Keppra 500 mg Tablet] 500 mg PO Q12 #60 tablet Referrals: [facility] [Provider Group] - Follow up as needed [facility] [Provider Group] - Follow up as needed
[2018-03-18 18:25] VITALS: BP 123/91
== END 2018-03-18 18:31 | disposition home or self-care (01) ==
LOC: ER 16:08
DX: G40.909 Epilepsy, unspecified, not intractable, without status epilepticus (principal); R32 Unspecified urinary incontinence; R11.10 Vomiting, unspecified; R51 Headache; Z79.899 Other long term (current) drug therapy
CPT/HCPCS: 99284; 96374; J1953

== ENCOUNTER 2018-06-14 10:26 | Emergency (ER) | payer SELFPAY ==
--- NOTE | 2018-06-14 10:56 | ER Document Report ---
ED General - General Mode of Arrival: Ambulatory Information source: Patient TRAVEL OUTSIDE OF THE [place] IN LAST 30 DAYS: No <NGUYEN PETERSEN - Last Filed: 06/14/18 11:51> <DAGOBERTO GALVAN - Last Filed: 06/14/18 11:58> - General Chief Complaint: Probable Seizure Stated Complaint: POSSIBLE SEIZURES Time Seen by Provider: 06/14/18 10:50 Notes: Patient is a 27 year old female with epilepsy presents to the emergency department complaining of a seizure onset approximately 30 minutes ago. Patient states the seizure was witness and she proceeded to vomit after the seizure was over. Patient states this seizure is identical to her previous seizures in the past, further stating nothing was different about the seizure she had today. Patient states she recently ran out of her Keppra (500 mg 2x daily) 4 days ago and does not have a PCP to refill them. Patient denies any injuries from her recent seizure. (NGUYEN PETERSEN) - Related Data Allergies/Adverse Reactions: NSAIDS (Non-Steroidal Anti-Inflamma Allergy (Verified 06/14/18 10:48) sertraline HCl [From Zoloft] Allergy (Verified 06/14/18 10:48) pomogranate Allergy (Uncoded 06/14/18 10:48) white chocolate Allergy (Uncoded 06/14/18 10:48) Past Medical History - General Information source: Patient - Social History Smoking Status: Never Smoker Cigarette use (# per day): No Chew tobacco use (# tins/day): No Smoking Education Provided: No Frequency of alcohol use: None Family History: Reviewed & Not Pertinent, Other - Aunt has seizures - Past Medical History Cardiac Medical History: Reports: Hx Hypertension - pre eclampsia Neurological Medical History: Reports: Hx Seizures - keppra Psychiatric Medical History: Reports: Hx Anxiety - Immunizations Immunizations up to date: Yes Hx Diphtheria, Pertussis, Tetanus Vaccination: Yes <NGUYEN PETERSEN - Last Filed: 06/14/18 11:51> Review of Systems - Review of Systems Constitutional: No symptoms reported EENT: No symptoms reported Cardiovascular: No symptoms reported Respiratory: No symptoms reported Gastrointestinal: See HPI, Vomiting Genitourinary: No symptoms reported Female Genitourinary: No symptoms reported Musculoskeletal: No symptoms reported Skin: No symptoms reported Hematologic/Lymphatic: No symptoms reported Neurological/Psychological: See HPI, Seizure -: Yes All other systems reviewed and negative <NGUYEN PETERSEN - Last Filed: 06/14/18 11:51> Physical Exam <NGUYEN PETERSEN - Last Filed: 06/14/18 11:51> <DAGOBERTO GALVAN - Last Filed: 06/14/18 11:58> - Vital signs Vitals: Temp Pulse Resp BP Pulse Ox 98.7 F 86 14 132/85 H 98 06/14/18 10:36 06/14/18 10:36 06/14/18 10:36 06/14/18 10:36 06/14/18 10:36 - Notes Notes: GENERAL: Alert, interacts well. No acute distress. HEAD: Normocephalic, atraumatic. EYES: Pupils equal, round, and reactive to light. Extraocular movements intact. ENT: Oral mucosa moist, tongue midline. NECK: Full range of motion. Supple. Trachea midline. LUNGS: Clear to auscultation bilaterally, no wheezes, rales, or rhonchi. No respiratory distress. HEART: Regular rate and rhythm. No murmurs, gallops, or rubs. ABDOMEN: Soft, non-tender. Non-distended. Bowel sounds present in all 4 quadrants. EXTREMITIES: Moves all 4 extremities spontaneously. NEUROLOGICAL: Alert and oriented x3. Normal speech. PSYCH: Normal affect, normal mood. SKIN: Warm, dry, normal turgor. No rashes or lesions noted. (NGUYEN PETERSEN) Course - Laboratory Result Diagrams: 06/14/18 11:10 06/14/18 11:10 <NGUYEN PETERSEN - Last Filed: 06/14/18 11:51> - Laboratory Result Diagrams: 06/14/18 11:10 06/14/18 11:10 <DAGOBERTO GALVAN - Last Filed: 06/14/18 11:58> - Re-evaluation Re-evalutation: 06/14/18 11:47 Patient is a known epileptic who has been denied by Medicare multiple times, she is in the process of trying to qualify for the [facility] but she has not yet qualified. Patient has difficulty obtaining her medications because she does not have a primary care physician. Blood work was checked and is normal. At present I feel the risks of a bad outcome to the patient due to untreated epilepsy are far higher than the risks of refilling her medications without direct follow-up. Patient will be given a 30-day prescription with 1 refill of her Keppra. Normally she takes 500 mg twice a day and we will continue this. Patient is discharged to home. Encouraged to return sooner when she is about to run out of her medications so that she does not continue to have tonic-clonic seizures. 06/14/18 11:50 I also wrote her prescription for Diastat and discussed its indications for use and the fact that she needs to inform all of her family members on how to use this and that they should use it if she has a tonic-clonic seizure that lasts for more than 5 minutes patient is also instructed that they should call 911 and have her transported to the hospital any time to use this medication. ( DAGOBERTO GALVAN) - Vital Signs Vital signs: Temp Pulse Resp BP Pulse Ox 98.4 F 80 18 139/90 H 100 06/14/18 11:47 06/14/18 11:47 06/14/18 11:47 06/14/18 11:47 06/14/18 11:47 - Laboratory Laboratory results interpreted by me: 06/14/18 11:10 BUN 5 L Discharge <NGUYEN PETERSEN - Last Filed: 06/14/18 11:51> <DAGOBERTO GALVAN - Last Filed: 06/14/18 11:58> - Discharge Clinical Impression: Seizure, Noncompliance w/medication treatment due to intermit use of medication Condition: Stable Disposition: HOME, SELF-CARE Additional Instructions: The next time you are running low in your medications please try to get them refilled before you run out as you have an increased risk of seizures and increased risk of from seizures when you run out of your medications. You can come to the emergency department, you can go to an urgent care, you can see a primary care physician. Prescriptions: Diazepam [Diastat Acudial] 1 each RC PRN PRN #1 kit PRN Reason: Seizures Levetiracetam [Keppra 500 mg Tablet] 500 mg PO Q12 #60 tablet Scribe Attestation: 06/14/18 11:58 I personally performed the services described in the documentation, reviewed and edited the documentation which was dictated to the scribe in my presence, and it accurately records my words and actions. (DAGOBERTO GALVAN) Scribe Documentation - Scribe Written by Carmen:: Carmen Sanchez, 06/14/2018 11:02 acting as scribe for :: Ayesha <NGUYEN PETERSEN - Last Filed: 06/14/18 11:51>
[2018-06-14 11:29] LABS: ABSOLUTE BASOPHILS # (AUTO) 0.1 10^3/uL (0.0-0.2); ABSOLUTE EOSINOPHILS # (AUTO) 0.2 10^3/uL (0.0-0.6); ABSOLUTE LYMPHOCYTES (AUTO) 1.9 10^3/uL (0.5-4.7); ABSOLUTE MONOCYTES (AUTO) 0.6 10^3/uL (0.1-1.4); ABSOLUTE NEUT (AUTO) 6.5 10^3/uL (1.7-8.2); BASOPHILS % (AUTO) 0.6 % (0-2); EOSINOPHILS % (AUTO) 1.8 % (0-6); HEMATOCRIT 44.7 % (36.0-47.0); HEMOGLOBIN 15.2 g/dL (12.0-15.5); LYMPHOCYTES % (AUTO) 20.3 % (13-45); MEAN CORPUSCULAR HEMOGLOBIN 32.5 pg (27.0-33.4); MEAN CORPUSCULAR HGB CONC 33.9 g/dL (32.0-36.0); MEAN CORPUSCULAR VOLUME 96 fl (80-97); MONOCYTES % (AUTO) 6.1 % (3-13); PLATELET COUNT 282 10^3/uL (150-450); RED BLOOD COUNT 4.67 10^6/uL (3.72-5.28); RED CELL DISTRIBUTION WIDTH 12.7 % (11.5-14.0); SEGMENTED NEUTROPHILS % (AUTO) 71.2 % (42-78); TOTAL CELLS COUNTED % (AUTO) 100 %; WHITE BLOOD COUNT 9.2 10^3/uL (4.0-10.5)
[2018-06-14 11:40] LABS: ALANINE AMINOTRANSFERASE 24 U/L (9-52); ALBUMIN 4.3 g/dL (3.5-5.0); ALKALINE PHOSPHATASE 69 U/L (38-126); ANION GAP 9 (5-19); ASPARTATE AMINO TRANSFERASE 23 U/L (14-36); BILIRUBIN,DIRECT 0.2 mg/dL (0.0-0.4); BILIRUBIN,TOTAL 0.4 mg/dL (0.2-1.3); BLOOD UREA NITROGEN 5 mg/dL (7-20); CALCIUM 9.2 mg/dL (8.4-10.2); CARBON DIOXIDE 26 mmol/L (22-30); CHLORIDE 104 mmol/L (98-107); GLUCOSE 106 mg/dL (75-110); POTASSIUM 4.4 mmol/L (3.6-5.0); SODIUM 138.9 mmol/L (137-145); TOTAL PROTEIN 7.5 g/dL (6.3-8.2)
[2018-06-14 11:49] VITALS: BP 139/90
== END 2018-06-14 11:52 | disposition home or self-care (01) ==
LOC: ER 10:26
DX: R56.9 Unspecified convulsions (principal); R11.0 Nausea; Z91.14 Patient's other noncompliance with medication regimen; I10 Essential (primary) hypertension
CPT/HCPCS: 36415; 80053; 84703; 85025; 99284

== ENCOUNTER 2018-07-05 09:42 | Emergency (ER) | payer SELFPAY ==
[2018-07-05 09:49] VITALS: BP 125/78
[2018-07-05] MEDS ORDERED: HYDROCODONE/ACETAMINOPHEN 5-325 MG TABLET PO ONE (11:17)
--- NOTE | 2018-07-05 11:22 | RADIOLOGY REPORT (SQ) ---
EXAM DESCRIPTION: FOOT RIGHT COMPLETE COMPLETED DATE/TIME: 07/05/2018 11:05 am REASON FOR STUDY: fall, pain from knee to ankle COMPARISON: None. NUMBER OF VIEWS: Three views. TECHNIQUE: AP, lateral and oblique radiographic images acquired of the right foot. LIMITATIONS: None. FINDINGS: MINERALIZATION: Normal. BONES: No acute fracture or dislocation. No worrisome bone lesions. JOINTS: No effusions. SOFT TISSUES: No soft tissue swelling. No foreign body. OTHER: No other significant finding. IMPRESSION: NEGATIVE STUDY OF THE RIGHT FOOT. NO RADIOGRAPHIC EVIDENCE OF ACUTE INJURY. TECHNICAL DOCUMENTATION: JOB ID: [id number] [employer]- All Rights Reserved Reading location - IP/workstation name: [email or web address]
--- NOTE | 2018-07-05 11:23 | RADIOLOGY REPORT (SQ) ---
EXAM DESCRIPTION: TIBIA FIBULA RIGHT COMPLETED DATE/TIME: 07/05/2018 11:05 am REASON FOR STUDY: fall, pain from knee to ankle COMPARISON: None. NUMBER OF VIEWS: Two views. TECHNIQUE: Two radiographic images acquired of the right tibia and fibula to include the knee and an kle in at least one projection. LIMITATIONS: None. FINDINGS: MINERALIZATION: Normal. BONES: No acute fracture or dislocation. No worrisome bone lesions. SOFT TISSUES: No obvious swelling or foreign body. OTHER: No other significant finding. IMPRESSION: NEGATIVE STUDY OF THE RIGHT TIBIA AND FIBULA. NO RADIOGRAPHIC EVIDENCE OF ACUTE INJURY. TECHNICAL DOCUMENTATION: JOB ID: [id number] [employer]- All Rights Reserved Reading location - IP/workstation name: [email or web address]
--- NOTE | 2018-07-05 11:33 | ER Document Report ---
HPI - HPI Pain Level: 5 Notes: Patient is an otherwise healthy 28-year-old female who presents with chief complaint of right lower leg pain. Patient states she was standing on a Halloween decorations when she landed and fell directly onto her right leg last night. Patient reports pain over the tib-fib area. Patient is able to ambulate however she states it is causing her pain. Patient has not taken any medications prior to arrival. - CONSTITUTIONAL Constitutional: DENIES: Fever, Chills - EENT EENT: DENIES: Sore Throat, Ear Pain, Eye problems - NEURO Neurology: DENIES: Headache, Weakness, Vision blurred, Dizzinesss / Vertigo - CARDIOVASCULAR Cardiovascular: DENIES: Chest pain - RESPIRATORY Respiratory: DENIES: Trouble Breathing, Coughing - GASTROINTESTINAL Gastrointestinal: DENIES: Abdominal Pain, Black / Bloody Stools - URINARY Urinary: DENIES: Dysuria, Urgency, Frequency - REPRODUCTIVE Reproductive: DENIES: : - MUSCULOSKELETAL Musculoskeletal: REPORTS: Extremity pain - right lower extremity Past Medical History - General Information source: Patient - Social History Smoking Status: Current Some Day Smoker Chew tobacco use (# tins/day): No Frequency of alcohol use: None Drug Abuse: None Family History: Other - Aunt has seizures Patient has suicidal ideation: No Patient has homicidal ideation: No - Past Medical History Cardiac Medical History: Reports: Hx Hypertension - pre eclampsia Neurological Medical History: Reports: Hx Seizures - keppra Renal/ Medical History: Denies: Hx Peritoneal Dialysis Psychiatric Medical History: Reports: Hx Anxiety Past Surgical History: Denies: Hx Cholecystectomy - Immunizations Immunizations up to date: Yes Hx Diphtheria, Pertussis, Tetanus Vaccination: Yes Vertical Provider Document - CONSTITUTIONAL Notes: PHYSICAL EXAMINATION: GENERAL: Well-appearing, well-nourished and in no acute distress. HEAD: Atraumatic, normocephalic. EYES: Pupils equal round extraocular movements intact, conjunctiva are normal. ENT: Nares patent NECK: Normal range of motion LUNGS: No respiratory distress Musculoskeletal: Normal range of motion, mild swelling noted to right ankle, cap refill less than 3 seconds, normal motor and sensation. NEUROLOGICAL: Normal speech, normal gait. PSYCH: Normal mood, normal affect. SKIN: Warm, Dry, normal turgor, no rashes or lesions noted. - INFECTION CONTROL TRAVEL OUTSIDE OF THE [place] IN LAST 30 DAYS: No Course - Re-evaluation Re-evalutation: To assist with ambulation. Patient verbalizes understanding of instructions. X -rays are negative for any acute findings to include fracture or dislocation. Patient will be discharged home with supportive care. Patient will be provided with crutches - Vital Signs Vital signs: Temp Pulse Resp BP Pulse Ox 98.3 F 98 18 125/78 97 07/05/18 09:47 07/05/18 09:47 07/05/18 09:47 07/05/18 09:47 07/05/18 09:47 Procedures - Immobilization Right leg Immobilizer type: Crutches Discharge - Discharge Clinical Impression: Leg injury Qualifiers: Encounter type: initial encounter Laterality: right Qualified Code(s): S89.91XA - Unspecified injury of right lower leg, initial encounter Condition: Stable Disposition: HOME, SELF-CARE Additional Instructions: SPRAIN: Your injury is a sprain. A sprain results from stretching or tearing of the ligaments, usually from a twisting injury. The ligaments will require time and protection in order to heal properly. Many sprains are quite disabling and should be taken seriously. The usual initial treatment of sprains is cold packs, elevation, and rest of the injured area. Your physician has assessed the seriousness of your ligament injury, and has outlined a treatment plan. Understand that this treatment may change, depending on how you progress. If a re-examination was recommended, it is important that you follow up as instructed. Call the doctor any time if there is severe pain, numbness, or loss of function in the injured area. SPRAINED ANKLE: Your sprained ankle results from stretching or tearing of the ligaments which support the ankle. This usually results from twisting the foot inward and under. The ligaments will require time and protection in order to heal properly. Many ankle sprains are quite disabling, and should be taken seriously. The usual treatment for an ankle sprain is cold packs; protection with tape , splints, or wraps; elevation; and staying off the ankle for at least a day. As the ankle improves, you can walk IF it's not painful to bear weight. Sports are best postponed until healing is complete. More serious sprains usually require strengthening exercises after early healing. Your physician has assessed the seriousness of the ligament injury to your ankle. However, the treatment may change, depending on how your ankle progresses. If further exams were recommended, it is important that you follow through. Call the doctor if your foot becomes numb, painful, or severely swollen. KNEE IMMOBILIZING SPLINT: The knee immobilizing splint will protect the injury while healing begins. This type of splint does not allow the knee to bend at all. No running or sports will be possible. If the splint allows painfree walking, it's giving adequate protection. If there is still significant pain, crutches may be needed as well. Don't do anything that hurts. Adjusted the splint, if necessary. The stiffeners on the sides are attached with Velcro, so they can be easily moved to adjust for thigh and calf size. If you need help with these adjustments, come back. You will lose muscle strength in the thigh while using this splint. The doctor will advise you if it's safe to do isometric knee exercises while you use it. USE OF CRUTCHES: The doctor has recommended that you not bear weight at this time. You will need to use crutches. Adjust the crutches so the tops come to about two inches under the armpit while you are standing upright. Use your hands -- not your armpits -- to support your weight. To get into a chair, support yourself with one crutch on the injured side. Hold the chair with the other hand, then lower yourself while putting all your weight on the good leg. Going up stairs is `good leg up, step up, then bring up crutches and bad leg.' Down stairs is `bad leg and crutches down, then bring good leg down.' If you develop numbness or swelling in an arm or hand, you are using the crutches incorrectly. Return if you are having any problems with the crutches. ICE & ELEVATION: Apply ice packs frequently against the painful area. Many different schedules are recommended, such as "20 minutes on, 20 minutes off" or "one hour ice, two hours rest." If you need to work, you may need to go longer between ice treatments. You should plan to have the area ice packed AT LEAST one- fourth of the time. The ice should be applied over the wrap, tape, or splint, or over a layer of cloth -- not directly against the skin. Some ice bags have a built-in cloth and can be put directly on the skin. Your injured part should be elevated as much as possible over the next 48 hours. Try to keep the injury above the level of the heart. Avoid use of the injured area. Elevation and rest will decrease the swelling. FOLLOW-UP CARE: If you have been referred to a physician for follow-up care, call the physician s office for an appointment as you were instructed or within the next two days. If you experience worsening or a significant change in your symptoms, notify the physician immediately or return to the Emergency Department at any time for re-evaluation. All of your x-rays are negative. Your pain is likely due to spraining of the area. Please use the crutches to keep some weight off of your right leg. Ice and elevate as outlined above, since you are allergic to NSAIDs please take Tylenol 650 mg every 4-6 hours for the pain. It will be very important to ice and elevate since you cannot take ibuprofen. If your pain continues please follow-up with your primary care doctor in the next 3-5 days. Forms: Return to Work
== END 2018-07-05 11:39 | disposition home or self-care (01) ==
LOC: ER 09:42
DX: S89.91XA Unspecified injury of right lower leg, initial encounter (principal); W17.89XA Other fall from one level to another, initial encounter; F17.200 Nicotine dependence, unspecified, uncomplicated
CPT/HCPCS: 99283

== ENCOUNTER 2018-08-16 09:21 | Emergency (ER) | payer SELFPAY ==
[2018-08-16 09:27] VITALS: BP 134/86
--- NOTE | 2018-08-16 09:54 | ER Document Report ---
ED Seizure - General Chief Complaint: Seizure Stated Complaint: POSSIBLE SEIZURE Time Seen by Provider: 08/16/18 09:45 Mode of Arrival: Ambulatory Information source: Patient Notes: Chief complaint: Prescription refill History of complain:( obtained from----patient) 28 years old female with a history of grand mal seizure presents today for prescription refill of Keppra. She has been taking lower dose of Keppra for the last few months and having breakthrough seizures. She has been taking 500 twice a day instead of thousand twice a day. No fever chills or other constitutional symptoms Onset: Long-standing for about 7 years Duration: 7 years Severity: Mild to moderate Quality: On and off seizures Context: Seizure disorders Exacerbating factor and relieving factors: Taking lower dose of Keppra REVIEW OF SYSTEMS: CONSTITUTIONAL : Denies fever, chills, or sweats. Denies recent illness. EENT: Denies eye, ear, throat, or mouth pain or symptoms. Denies nasal or sinus congestion or discharge. Denies throat, tongue, or mouth swelling or difficulty swallowing. CARDIOVASCULAR: Denies chest pain. Denies palpitations or racing or irregular heart beat. Denies ankle edema. RESPIRATORY: Denies cough, cold, or chest congestion. Denies shortness of breath, difficulty breathing, or wheezing. GASTROINTESTINAL: Denies distention. Denies nausea, vomiting, or diarrhea. Denies blood in vomitus, stools, or per rectum. Denies black, tarry stools. Denies constipation. GENITOURINARY: Denies difficulty urinating, painful urination, burning, frequency, blood in urine, or discharge. FEMALE GENITOURINARY: Denies vaginal bleeding, heavy or abnormal periods, irregular periods. Denies vaginal discharge or odor. MUSCULOSKELETAL: Denies back or neck pain or stiffness. Denies joint pain or swelling. SKIN: Denies rash, lesions or sores. HEMATOLOGIC : Denies easy bruising or bleeding. LYMPHATIC: Denies swollen, enlarged glands. NEUROLOGICAL: Denies confusion or altered mental status. Denies passing out or loss of consciousness. Denies dizziness or lightheadedness. Denies headache. Denies weakness or paralysis or loss of use of either side. Denies problems with gait or speech. Denies sensory loss, numbness, or tingling. Denies seizures. PSYCHIATRIC: Denies anxiety or stress. Denies depression, suicidal ideation, or homicidal ideation. ALL OTHER SYSTEMS REVIEWED AND NEGATIVE. PHYSICAL EXAMINATION: GENERAL: Well-appearing, well-nourished and in no acute distress. HEAD: Atraumatic, normocephalic. EYES: Pupils equal round and reactive to light, extraocular movements intact, conjunctiva are normal. ENT: Nares patent, oropharynx clear without exudates. Moist mucous membranes. NECK: Normal range of motion, supple without lymphadenopathy LUNGS: Breath sounds clear to auscultation bilaterally and equal. No wheezes rales or rhonchi. HEART: Regular rate and rhythm without murmurs ABDOMEN: Soft, nontender, nondistended abdomen. No guarding, no rebound. No masses appreciated. Examination of genitals-deferred Musculoskeletal: Normal range of motion, no pitting or edema. No cyanosis. NEUROLOGICAL: Cranial nerves grossly intact. Normal speech, normal gait. Normal sensory, motor exams PSYCH: Normal mood, normal affect. SKIN: Warm, Dry, normal turgor, no rashes or lesions noted. Dictation was performed using [employer] voice recognition software - Related Data Allergies/Adverse Reactions: NSAIDS (Non-Steroidal Anti-Inflamma Allergy (Verified 07/05/18 09:45) sertraline HCl [From Zoloft] Allergy (Verified 07/05/18 09:45) pomogranate Allergy (Uncoded 07/05/18 09:45) white chocolate Allergy (Uncoded 07/05/18 09:45) Past Medical History - Social History Smoking Status: Never Smoker Frequency of alcohol use: None Drug Abuse: None Lives with: Family Family History: Reviewed & Not Pertinent, Other - Aunt has seizures - Past Medical History Cardiac Medical History: Reports: Hx Hypertension - pre eclampsia Neurological Medical History: Reports: Hx Seizures - keppra Renal/ Medical History: Denies: Hx Peritoneal Dialysis Psychiatric Medical History: Reports: Hx Anxiety Past Surgical History: Denies: Hx Cholecystectomy - Immunizations Immunizations up to date: Yes Hx Diphtheria, Pertussis, Tetanus Vaccination: Yes Review of Systems - Review of Systems Notes: Dictated Physical Exam - Vital signs Vitals: Temp Pulse Resp BP Pulse Ox 98.2 F 99 18 134/86 H 98 08/16/18 09:24 08/16/18 09:24 08/16/18 09:24 08/16/18 09:24 08/16/18 09:24 Course - Vital Signs Vital signs: Temp Pulse Resp BP Pulse Ox 98.2 F 99 18 134/86 H 98 08/16/18 09:24 08/16/18 09:24 08/16/18 09:24 08/16/18 09:24 08/16/18 09:24 Discharge - Discharge Clinical Impression: Seizure Condition: Fair Disposition: HOME, SELF-CARE Instructions: Seizure, Known Epileptic ([facility]) Prescriptions: Levetiracetam [Keppra 500 mg Tablet] 1,000 mg PO Q12 #120 tablet
== END 2018-08-16 09:54 | disposition home or self-care (01) ==
LOC: ER 09:21
DX: G40.909 Epilepsy, unspecified, not intractable, without status epilepticus (principal); T42.6X6A Underdosing of other antiepileptic and sedative-hypnotic drugs, initial encounter; Z91.128 Patient's intentional underdosing of medication regimen for other reason; Z91.14 Patient's other noncompliance with medication regimen; Z88.8 Allergy status to other drugs, medicaments and biological substances; Z91.018 Allergy to other foods
CPT/HCPCS: 99283

== ENCOUNTER 2018-11-16 16:34 | Emergency (ER) | payer SELFPAY ==
[2018-11-16 17:13] VITALS: BP 140/93
--- NOTE | 2018-11-16 17:38 | ER Document Report ---
HPI - HPI Patient complains to provider of: Med refill Time Seen by Provider: 11/16/18 17:37 Onset: Yesterday Quality of pain: No pain Severity: None Pain Level: Denies Context: 28-year-old female presented to ED for request of medication refill for her Keppra 500 mg 2 p.o. twice daily. She states she ran out last night. States she has not taken any today. She states she has seizures without her medication and needs it filled. Her prescription has been coming from the ER for a while as she does not have a PCM. She states she is applying for Medicaid and waiting for the approval. She has been instructed that she needs to follow-up with the digital sales planner and get a PCM or [facility] to help her with a prescription so she does not run out of her medication. She states she did not have an seizures for 10 years and has been on the same medication. Patient is alert oriented respirations regular and unlabored speaking in full sentences wa lks with a even steady gait. Associated Symptoms: None Exacerbated by: Denies Relieved by: Denies Similar symptoms previously: Yes Recently seen / treated by doctor: No - ROS ROS below otherwise negative: Yes - CONSTITUTIONAL Constitutional: DENIES: Fever, Chills - EENT EENT: DENIES: Sore Throat, Ear Pain, Nasal Drainage-Clear, Nasal Drainage- Purulent, Congestion, Eye problems - NEURO Neurology: DENIES: Headache, Weakness, Vision blurred, Dizzinesss / Vertigo - CARDIOVASCULAR Cardiovascular: DENIES: Chest pain - RESPIRATORY Respiratory: DENIES: Trouble Breathing, Coughing - GASTROINTESTINAL Gastrointestinal: DENIES: Abdominal Pain, Nausea, Patient vomiting, Diarrhea, Constipation, Black / Bloody Stools - URINARY Urinary: DENIES: Dysuria, Urgency, Frequency - REPRODUCTIVE Reproductive: DENIES: :, Postmenopausal, Abnormal bleeding / discharge - MUSCULOSKELETAL Musculoskeletal: DENIES: Extremity pain, Back Pain, Neck Pain, Swelling - DERM Skin Color: Normal Skin Problems: None Past Medical History - General Information source: Patient - Social History Smoking Status: Never Smoker Frequency of alcohol use: None Drug Abuse: None Lives with: Family Family History: Reviewed & Not Pertinent, Other - Aunt has seizures Patient has suicidal ideation: No Patient has homicidal ideation: No - Past Medical History Cardiac Medical History: Reports: Hx Hypertension - pre eclampsia Pulmonary Medical History: Reports: None EENT Medical History: Reports: None Neurological Medical History: Reports: Hx Seizures - keppra Endocrine Medical History: Reports: None Renal/ Medical History: Reports: None Malignancy Medical History: Reports: None GI Medical History: Reports: None Musculoskeletal Medical History: Reports None Skin Medical History: Reports None Psychiatric Medical History: Reports: Hx Anxiety Traumatic Medical History: Reports: None Infectious Medical History: Reports: None Surgical Hx: Negative Past Surgical History: Reports: None - Immunizations Immunizations up to date: Yes Hx Diphtheria, Pertussis, Tetanus Vaccination: Yes Vertical Provider Document - CONSTITUTIONAL Agree With Documented VS: Yes Exam Limitations: No Limitations General Appearance: WD/WN, No Apparent Distress - INFECTION CONTROL TRAVEL OUTSIDE OF THE [place] IN LAST 30 DAYS: No - HEENT HEENT: Atraumatic, Normal ENT Exam, Normocephalic, PERRLA - NECK Neck: Normal Inspection, Supple - RESPIRATORY Respiratory: Breath Sounds Normal, No Respiratory Distress, Chest Non-Tender - CARDIOVASCULAR Cardiovascular: Regular Rate, Regular Rhythm, No Murmur - GI/ABDOMEN Gastrointestinal: Abdomen Soft, Abdomen Non-Tender, No Organomegaly, Normal Bowel Sounds - REPRODUCTIVE Female Genitalia: Normal Inspection - BACK Back: Normal Inspection - MUSCULOSKELETAL/EXTREMETIES Musculoskeletal/Extremeties: MAEW, FROM, Non-Tender - NEURO Level of Consciousness: Awake, Alert, Appropriate Motor/Sensory: No Motor Deficit, No Sensory Deficit Deep Tendon Reflexes: 2+ - DERM Integumentary: Warm, Dry, No Rash Course - Vital Signs Vital signs: Temp Pulse Resp BP Pulse Ox 98.3 F 93 17 140/93 H 97 11/16/18 17:11 11/16/18 17:11 11/16/18 17:11 11/16/18 17:11 11/16/18 17:11 Discharge - Discharge Clinical Impression: Med refill for Keppra Condition: Stable Disposition: HOME, SELF-CARE Instructions: Family Physicians / Practices Additional Instructions: You were seen today for a medication refill on your seizure medicine Keppra. Very important that you fill this medication before you run out so it is important for you to have a primary care doctor they can keep you up-to-date with your medication. I have given you a card for Javan Araya the lining caser for the emergency room that should be able to help you to ensure you get a primary doctor or someone to follow-up with. FOLLOW-UP CARE: If you have been referred to a physician for follow-up care, call the physicians office for an appointment as you were instructed or within the next two days. If you experience worsening or a significant change in your symptoms, notify the physician immediately or return to the Emergency Department at any time for re-evaluation. Prescriptions: Levetiracetam [Keppra 500 mg Tablet] 1,000 mg PO Q12 #120 tablet Forms: Elevated Blood Pressure Referrals: [facility] [Provider Group] - Follow up as needed BECCA NO MD [NO LOCAL MD] - Follow up as needed
== END 2018-11-16 17:57 | disposition home or self-care (01) ==
LOC: ER 16:34
DX: Z76.0 Encounter for issue of repeat prescription (principal); R56.9 Unspecified convulsions; Z79.899 Other long term (current) drug therapy
CPT/HCPCS: 99281

== ENCOUNTER 2018-12-16 10:47 | Emergency (ER) | payer SELFPAY ==
[2018-12-16 11:11] VITALS: BP 130/83
[2018-12-16] MEDS ORDERED: LEVETIRACETAM 500 MG TABLET PO ONE (11:49)
--- NOTE | 2018-12-16 11:51 | ER Document Report ---
HPI - HPI Time Seen by Provider: 12/16/18 11:40 Pain Level: 4 Notes: Patient is a 28-year-old female with epilepsy presenting to the emergency department requesting a medication refill. Patient states that she takes Keppra. Patient states that she has been out of her Keppra for approximately 1 week. Patient states that she has been seen here in the past for medication refill and was told to not come back for any medication refills. Patient states she had a seizure yesterday and today due to being out of her medications. Patient denies any acute complaints or injuries today. Patient states that she just needs her medication refilled. - REPRODUCTIVE Reproductive: DENIES: : - DERM Skin Color: Normal Past Medical History - General Information source: Patient - Social History Smoking Status: Never Smoker Chew tobacco use (# tins/day): No Frequency of alcohol use: None Drug Abuse: None Family History: Reviewed & Not Pertinent, Other - Aunt has seizures Patient has suicidal ideation: No Patient has homicidal ideation: No - Past Medical History Cardiac Medical History: Reports: Hx Hypertension - pre eclampsia Neurological Medical History: Reports: Hx Seizures - keppra Renal/ Medical History: Denies: Hx Peritoneal Dialysis Psychiatric Medical History: Reports: Hx Anxiety Past Surgical History: Denies: Hx Cholecystectomy - Immunizations Immunizations up to date: Yes Hx Diphtheria, Pertussis, Tetanus Vaccination: Yes Vertical Provider Document - CONSTITUTIONAL Notes: PHYSICAL EXAMINATION: GENERAL: Well-appearing, well-nourished and in no acute distress. HEAD: Atraumatic, normocephalic. EYES: Pupils equal round extraocular movements intact, conjunctiva are normal. ENT: Nares patent NECK: Normal range of motion LUNGS: No respiratory distress Musculoskeletal: Normal range of motion NEUROLOGICAL: Normal speech, normal gait. PSYCH: Normal mood, normal affect. SKIN: Warm, Dry, normal turgor, no rashes or lesions noted. - INFECTION CONTROL TRAVEL OUTSIDE OF THE [place] IN LAST 30 DAYS: No Course - Re-evaluation Re-evalutation: Patient's medication refilled. Patient given contact information for the [facility] so that patient can have proper follow-up and medication management. - Vital Signs Vital signs: Temp Pulse Resp BP Pulse Ox 98.5 F 90 16 130/83 H 97 12/16/18 11:07 12/16/18 11:07 12/16/18 11:07 12/16/18 11:07 12/16/18 11:07 Discharge - Discharge Clinical Impression: Medication refill Condition: Stable Disposition: HOME, SELF-CARE Additional Instructions: You are seen today for medication refill of your Keppra. Please take medications as prescribed. [facility] Prescriptions: Levetiracetam [Keppra 500 mg Tablet] 1,000 mg PO Q12 #120 tablet
== END 2018-12-16 11:54 | disposition home or self-care (01) ==
LOC: ER 10:47
DX: Z76.0 Encounter for issue of repeat prescription (principal); G40.909 Epilepsy, unspecified, not intractable, without status epilepticus; T42.6X6A Underdosing of other antiepileptic and sedative-hypnotic drugs, initial encounter; Z91.128 Patient's intentional underdosing of medication regimen for other reason; Z91.14 Patient's other noncompliance with medication regimen
CPT/HCPCS: 99281

== ENCOUNTER 2019-02-16 15:08 | Emergency (ER) | payer SELFPAY ==
[2019-02-16 15:20] VITALS: BP 136/98
[2019-02-16] MEDS ORDERED: LEVETIRACETAM 500 MG TABLET PO ONE (15:43)
--- NOTE | 2019-02-16 15:47 | ER Document Report ---
HPI - HPI Patient complains to provider of: Medication refill Time Seen by Provider: 02/16/19 15:40 Onset: Yesterday Quality of pain: No pain Pain Level: 0 Context: Patient presents to the emergency department with reports she had a seizure last night. Patient reports that she has a history of seizures. She ran out of her meds yesterday and this is typically what happens when she runs out of her Keppra. Patient reports she has been seen at the [facility] is hoping she will receive Medicaid soon. Otherwise she comes here for medication refill. She denies all symptoms. Such as fever vomiting diarrhea. Reports no seizures today. Her seizure last night was witnessed by her sister. She reports that the patient gets really confused and cannot talk for a few minutes. She reports that last for like 5 minutes. Sister also reports that she has tonic-clonic seizures but did not experience at last night. Associated Symptoms: None Exacerbated by: Denies Relieved by: Denies Similar symptoms previously: Yes Recently seen / treated by doctor: Yes - REPRODUCTIVE Reproductive: DENIES: : - DERM Skin Color: Normal Past Medical History - General Information source: Patient Last Menstrual Period: january 2019 - Social History Smoking Status: Never Smoker Chew tobacco use (# tins/day): No Frequency of alcohol use: None Drug Abuse: None Lives with: Family Family History: Reviewed & Not Pertinent, Other - Aunt has seizures Patient has suicidal ideation: No Patient has homicidal ideation: No - Past Medical History Cardiac Medical History: Reports: Hx Hypertension - pre eclampsia Neurological Medical History: Reports: Hx Seizures - keppra Renal/ Medical History: Denies: Hx Peritoneal Dialysis Psychiatric Medical History: Reports: Hx Anxiety Surgical Hx: Negative Past Surgical History: Denies: Hx Cholecystectomy - Immunizations Immunizations up to date: Yes Hx Diphtheria, Pertussis, Tetanus Vaccination: Yes Vertical Provider Document - CONSTITUTIONAL Agree With Documented VS: Yes Exam Limitations: No Limitations General Appearance: WD/WN, No Apparent Distress - INFECTION CONTROL TRAVEL OUTSIDE OF THE [place] IN LAST 30 DAYS: No - HEENT HEENT: Atraumatic, Normocephalic - NECK Neck: Normal Inspection, Supple. negative: Lymphadenopathy-Left, Lymphadenopathy-Right - RESPIRATORY Respiratory: Breath Sounds Normal, No Respiratory Distress - CARDIOVASCULAR Cardiovascular: Regular Rate, Regular Rhythm - GI/ABDOMEN Gastrointestinal: Abdomen Soft, Abdomen Non-Tender - MUSCULOSKELETAL/EXTREMETIES Musculoskeletal/Extremeties: SARA NORWOOD - NEURO Level of Consciousness: Awake, Alert, Appropriate Motor/Sensory: No Motor Deficit - DERM Integumentary: Warm, Dry Course - Re-evaluation Re-evalutation: 02/16/19 15:54 Message was left the ED child support case officer telephone. I also gave this patient the ED child support case officer card. She was instructed to follow-up with her and to continue to talk with the [facility] to get her Medicaid so she can have a primary care provider. She verbalized understanding. Dictation of this chart was performed using voice recognition software; therefore, there may be some unintended grammatical errors. - Vital Signs Vital signs: Temp Pulse Resp BP Pulse Ox 98 F 93 18 136/98 H 96 02/16/19 15:18 02/16/19 15:18 02/16/19 15:18 02/16/19 15:18 02/16/19 15:18 Discharge - Discharge Clinical Impression: Medication refill, History of seizures Condition: Stable Disposition: HOME, SELF-CARE Instructions: Anti-Convulsant Medication ([facility]), Seizure, Known Epileptic ([facility]) Additional Instructions: *You have been evaluated for medication refill history of seizures *Take medication as prescribed *Follow up with the [facility] within 5 days for recheck and also to check on your Medicaid status. *Return to ED for worsening condition, changes, needs Monitor your blood pressure. Your blood pressure was elevated today. This may be because you were anxious, in pain or because you need medication. It is important to follow up with your primary care provider for full evaluation. Prescriptions: Levetiracetam [Keppra] 1,000 mg PO BID #60 tablet Forms: Elevated Blood Pressure
== END 2019-02-16 15:55 | disposition home or self-care (01) ==
LOC: ER 15:08
DX: Z76.0 Encounter for issue of repeat prescription (principal); R56.9 Unspecified convulsions; Z79.899 Other long term (current) drug therapy; I10 Essential (primary) hypertension
CPT/HCPCS: 99281

== ENCOUNTER 2019-03-21 18:50 | Emergency (ER) | payer SELFPAY ==
[2019-03-21] MEDS ORDERED: LEVETIRACETAM 500 MG TABLET PO ONE (20:48)
--- NOTE | 2019-03-21 20:51 | ER Document Report ---
ED Medical Screen (RME) - General Chief Complaint: Seizure Stated Complaint: HEADACHE,DIZZY/POST SEIZURE Time Seen by Provider: 03/21/19 20:42 Notes: Patient is a 28-year-old female with past medical history of seizures who presents to the emergency department after having a seizure at home. She states that she took her Keppra this morning, but only had half the dose and this afternoon she ended up having a seizure. Denies a [place] seizure, but mother is at bedside and states that she did have seizure activity. The seizure happened about 50 minutes prior to arrival to here to the emergency department. Patient denies any long periods of loss of consciousness. Patient is alert and oriented. Patient normally takes 1000 mg of Keppra twice daily. Patient states that she has not been able to get insurance at this time and was told when she runs out of her medication to come back here to the emergency department to have it refilled. Denies any other past medical history. Exam: Alert and oriented, no neurological deficits noted. I have greeted and performed a rapid initial assessment of this patient. A comprehensive ED assessment and evaluation of the patient, analysis of test results and completion of medical decision making process will be conducted by an additional ED providers. TRAVEL OUTSIDE OF THE [place] IN LAST 30 DAYS: No - Related Data Allergies/Adverse Reactions: NSAIDS (Non-Steroidal Anti-Inflamma Allergy (Verified 03/21/19 18:54) sertraline HCl [From Zoloft] Allergy (Verified 03/21/19 18:54) pomogranate Allergy (Uncoded 03/21/19 18:54) white chocolate Allergy (Uncoded 03/21/19 18:54) Past Medical History - Social History Family history: Reviewed & Not Pertinent - Past Medical History Cardiac Medical History: Reports: Hx Hypertension - pre eclampsia Neurological Medical History: Reports: Hx Seizures - keppra Renal/ Medical History: Denies: Hx Peritoneal Dialysis Psychiatric Medical History: Reports: Hx Anxiety Past Surgical History: Denies: Hx Cholecystectomy - Immunizations Immunizations up to date: Yes Hx Diphtheria, Pertussis, Tetanus Vaccination: Yes Physical Exam - Vital signs Vitals: Temp Pulse Resp BP Pulse Ox 98.8 F 89 20 135/95 H 97 03/21/19 19:03 03/21/19 19:03 03/21/19 19:03 03/21/19 19:03 03/21/19 19:03 Course - Vital Signs Vital signs: Temp Pulse Resp BP Pulse Ox 98.8 F 89 20 135/95 H 97 03/21/19 19:03 03/21/19 19:03 03/21/19 19:03 03/21/19 19:03 03/21/19 19:03
[2019-03-21 21:14] LABS: ABSOLUTE BASOPHILS # (AUTO) 0.1 10^3/uL (0.0-0.2); ABSOLUTE EOSINOPHILS # (AUTO) 0.1 10^3/uL (0.0-0.6); ABSOLUTE LYMPHOCYTES (AUTO) 2.1 10^3/uL (0.5-4.7); ABSOLUTE MONOCYTES (AUTO) 0.5 10^3/uL (0.1-1.4); ABSOLUTE NEUT (AUTO) 8.6 10^3/uL (1.7-8.2); BASOPHILS % (AUTO) 0.5 % (0-2); EOSINOPHILS % (AUTO) 1.2 % (0-6); HEMATOCRIT 43.9 % (36.0-47.0); HEMOGLOBIN 14.8 g/dL (12.0-15.5); LYMPHOCYTES % (AUTO) 18.6 % (13-45); MEAN CORPUSCULAR HEMOGLOBIN 31.9 pg (27.0-33.4); MEAN CORPUSCULAR HGB CONC 33.7 g/dL (32.0-36.0); MEAN CORPUSCULAR VOLUME 95 fl (80-97); MONOCYTES % (AUTO) 4.7 % (3-13); PLATELET COUNT 336 10^3/uL (150-450); RED BLOOD COUNT 4.64 10^6/uL (3.72-5.28); RED CELL DISTRIBUTION WIDTH 13.1 % (11.5-14.0); TOTAL CELLS COUNTED % (AUTO) 100 %; WHITE BLOOD COUNT 11.5 10^3/uL (4.0-10.5)
[2019-03-21 21:31] LABS: ALANINE AMINOTRANSFERASE 24 U/L (9-52); ALBUMIN 4.6 g/dL (3.5-5.0); ALKALINE PHOSPHATASE 83 U/L (38-126); ANION GAP 9 (5-19); ASPARTATE AMINO TRANSFERASE 22 U/L (14-36); BILIRUBIN,DIRECT 0.2 mg/dL (0.0-0.4); BILIRUBIN,TOTAL 0.3 mg/dL (0.2-1.3); BLOOD UREA NITROGEN 7 mg/dL (7-20); CALCIUM 9.8 mg/dL (8.4-10.2); CARBON DIOXIDE 26 mmol/L (22-30); CHLORIDE 104 mmol/L (98-107); GLUCOSE 103 mg/dL (75-110); POTASSIUM 4.1 mmol/L (3.6-5.0); SODIUM 139.3 mmol/L (137-145); TOTAL PROTEIN 7.6 g/dL (6.3-8.2)
--- NOTE | 2019-03-22 00:35 | ER Document Report ---
ED General - General Chief Complaint: Seizure Stated Complaint: HEADACHE,DIZZY/POST SEIZURE Time Seen by Provider: 03/21/19 20:42 Primary Care Provider: MARIA ALEJANDRA [facility] [Provider Group] - 03/25/19 [facility] [Provider Group] - 03/25/19 Notes: Patient is a 28-year-old female with past medical history of seizures who presents to the emergency department after having a seizure at home. She states that she took her Keppra this morning, but only had half the dose and this afternoon she ended up having a seizure. Denies a [place] mall seizure, but mother is at bedside and states that she did have seizure activity. The seizure happened about 50 minutes prior to arrival to here to the emergency department. Patient denies any long periods of loss of consciousness. Patient is alert and oriented. Patient normally takes 1000 mg of Keppra twice daily. Patient states that she has not been able to get insurance at this time and was told when she runs out of her medication to come back here to the emergency department to have it refilled. Denies any other past medical history. TRAVEL OUTSIDE OF THE [place] IN LAST 30 DAYS: No - Related Data Allergies/Adverse Reactions: NSAIDS (Non-Steroidal Anti-Inflamma Allergy (Verified 03/21/19 18:54) sertraline HCl [From Zoloft] Allergy (Verified 03/21/19 18:54) pomogranate Allergy (Uncoded 03/21/19 18:54) white chocolate Allergy (Uncoded 03/21/19 18:54) Past Medical History - Social History Smoking Status: Unknown if Ever Smoked Family History: Reviewed & Not Pertinent, Other - Aunt has seizures - Past Medical History Cardiac Medical History: Reports: Hx Hypertension - pre eclampsia Neurological Medical History: Reports: Hx Seizures - keppra Renal/ Medical History: Denies: Hx Peritoneal Dialysis Psychiatric Medical History: Reports: Hx Anxiety Past Surgical History: Denies: Hx Cholecystectomy - Immunizations Immunizations up to date: Yes Hx Diphtheria, Pertussis, Tetanus Vaccination: Yes Review of Systems - Review of Systems Notes: REVIEW OF SYSTEMS: CONSTITUTIONAL : Denies recent illness. Denies recent unintentional weight loss. Denies fever, chills, or sweats. EENT: Denies eye, ear, throat, or mouth pain, discharge, or symptoms. Denies nasal or sinus congestion. CARDIOVASCULAR: Denies chest pain. RESPIRATORY: Denies shortness of breath, cough, congestion, difficulty breathing, or wheezing. GASTROINTESTINAL: Denies nausea, vomiting, and diarrhea. Denies abdominal pain. Denies constipation. GENITOURINARY: Denies difficulty urinating, burning, blood in urine, urgency or frequency. MUSCULOSKELETAL: Denies neck and back pain. Denies joint pain or swelling. SKIN: Denies rash, itchiness, or lesions HEMATOLOGIC : Denies easy bruising or bleeding. LYMPHATIC: Denies swollen, painful, enlarged glands. NEUROLOGICAL: See HPI PSYCHIATRIC: Denies stress, anxiety, alteration in sleep patterns, or depression. All other systems reviewed and negative. Physical Exam - Vital signs Vitals: Temp Pulse Resp BP Pulse Ox 98.8 F 89 20 135/95 H 97 03/21/19 19:03 03/21/19 19:03 03/21/19 19:03 03/21/19 19:03 03/21/19 19:03 - Notes Notes: PHYSICAL EXAMINATION: GENERAL: Appears well, healthy, well-nourished, no acute distress. HEAD: Normocephalic, atraumatic. EYES: PERRL, conjunctiva normal, all extraocular movements intact, sclera nonic teric ENT: Moist mucous membranes. NECK: Supple, no noticeable swelling, redness, rash. Normal range of motion. LUNGS: Equal breath sounds bilaterally and clear to auscultation. No wheezes rales or rhonchi. CARDIOVASCULAR: S1-S2, regular rate, regular rhythm. Radial pulses 2+, normal. ABDOMEN: Normoactive bowel sounds. Soft, nontender, no guarding, no rebound tenderness, and no masses palpated. EXTREMITIES: Normal strength and range of motion, no pitting or edema. No cyanosis. NEUROLOGICAL: Moves all extremities upon command. Strength 5/5 in all extremities. PSYCH: Normal mood, normal affect. SKIN: Warm, dry. No rash, lesions, ulcerations noted. Normal skin turgor. Course - Re-evaluation Re-evalutation: 03/22/19 00:35 Patient's labs are unremarkable at this time. No neurological deficits noted. Patient did not have a seizure while she was here in the emergency department. I will refill her Keppra. I have advised the patient that once she gets her health insurance to establish a primary care provider and be referred out to a neurologist in the area. She is in agreement with this plan. Follow-up precautions were given. Verbal discharge instructions were given to the patient. They verbalized understanding. They are stable for discharge. - Vital Signs Vital signs: Temp Pulse Resp BP Pulse Ox 98.0 F 81 16 136/85 H 97 03/22/19 00:46 03/22/19 00:46 03/22/19 00:46 03/22/19 00:46 03/22/19 00:46 - Laboratory Result Diagrams: 03/21/19 20:56 03/21/19 20:56 Laboratory results interpreted by me: 03/21/19 20:56 WBC 11.5 H Absolute Neutrophils 8.6 H Discharge - Discharge Clinical Impression: Seizure, History of seizure disorder Condition: Stable Disposition: HOME, SELF-CARE Additional Instructions: You are seen today in the emergency department after having a seizure. Your medication has been refilled. Please follow-up with 1 of the clinics below in regards to this visit. Once you have your insurance in place, please get a referral to an neurologist to manage your medication. Prescriptions: Levetiracetam [Keppra 500 mg Tablet] 1,000 mg PO Q12 #120 tablet Referrals: [facility] [Provider Group] - 03/25/19 [facility] [Provider Group] - 03/25/19
[2019-03-22 00:48] VITALS: BP 136/85
== END 2019-03-22 00:48 | disposition home or self-care (01) ==
LOC: ER 18:50
DX: R56.9 Unspecified convulsions (principal); R51 Headache; R42 Dizziness and giddiness
CPT/HCPCS: 36415; 80053; 85025; 99284

== ENCOUNTER 2019-10-13 10:33 | Emergency (ER) | payer SELFPAY ==
--- NOTE | 2019-10-13 10:56 | ER Document Report ---
ED Medical Screen (RME) - General Chief Complaint: Probable Seizure Stated Complaint: POSSIBLE SEIZURE Time Seen by Provider: 10/13/19 10:50 Mode of Arrival: Ambulatory Information source: Patient Notes: 29-year-old female patient presents emergency department with chief complaint of seizures. Patient reports history of epilepsy, states she usually takes Keppra, states she has not had it since Monday. Patient reports she has no insurance and has not been able to see a doctor to get a refill. She reports having a seizure last night that she believes was triggered by lights and sounds from her children's toys. She states today she continues to not feel well and keeps "blacking out". She states when she is on her Keppra her seizures are managed very well. Exam: Patient alert, oriented, answering all questions appropriately, no acute distress noted. Lung sounds clear and equal bilaterally. I have greeted and performed a rapid initial assessment of this patient. A comprehensive ED assessment and evaluation of the patient, analysis of test results and completion of the medical decision making process will be conducted by additional ED providers. I have specifically instructed the patient or family members with the patient to immediately return to any nursing staff should anything change in the patient's condition or with their chief complaint. TRAVEL OUTSIDE OF THE [place] IN LAST 30 DAYS: No - Related Data Allergies/Adverse Reactions: NSAIDS (Non-Steroidal Anti-Inflamma Allergy (Verified 03/21/19 18:54) sertraline HCl [From Zoloft] Allergy (Verified 03/21/19 18:54) pomogranate Allergy (Uncoded 03/21/19 18:54) white chocolate Allergy (Uncoded 03/21/19 18:54) Past Medical History - Social History Family history: Reviewed & Not Pertinent - Past Medical History Cardiac Medical History: Reports: Hx Hypertension - pre eclampsia Neurological Medical History: Reports: Hx Seizures - keppra Renal/ Medical History: Denies: Hx Peritoneal Dialysis Psychiatric Medical History: Reports: Hx Anxiety Past Surgical History: Denies: Hx Cholecystectomy - Immunizations Immunizations up to date: Yes Hx Diphtheria, Pertussis, Tetanus Vaccination: Yes
[2019-10-13 11:24] LABS: ABSOLUTE BASOPHILS # (AUTO) 0.1 10^3/uL (0.0-0.2); ABSOLUTE EOSINOPHILS # (AUTO) 0.2 10^3/uL (0.0-0.6); ABSOLUTE LYMPHOCYTES (AUTO) 1.7 10^3/uL (0.5-4.7); ABSOLUTE MONOCYTES (AUTO) 0.4 10^3/uL (0.1-1.4); ABSOLUTE NEUT (AUTO) 4.4 10^3/uL (1.7-8.2); BASOPHILS % (AUTO) 1.1 % (0-2); EOSINOPHILS % (AUTO) 2.3 % (0-6); HEMATOCRIT 42.4 % (36.0-47.0); HEMOGLOBIN 14.5 g/dL (12.0-15.5); LYMPHOCYTES % (AUTO) 25.5 % (13-45); MEAN CORPUSCULAR HEMOGLOBIN 32.6 pg (27.0-33.4); MEAN CORPUSCULAR HGB CONC 34.2 g/dL (32.0-36.0); MEAN CORPUSCULAR VOLUME 96 fl (80-97); MONOCYTES % (AUTO) 6.2 % (3-13); PLATELET COUNT 242 10^3/uL (150-450); RED BLOOD COUNT 4.43 10^6/uL (3.72-5.28); RED CELL DISTRIBUTION WIDTH 12.8 % (11.5-14.0); SEGMENTED NEUTROPHILS % (AUTO) 64.9 % (42-78); TOTAL CELLS COUNTED % (AUTO) 100 %; WHITE BLOOD COUNT 6.9 10^3/uL (4.0-10.5)
[2019-10-13 11:42] LABS: ALBUMIN 4.2 g/dL (3.5-5.0); ALKALINE PHOSPHATASE 82 U/L (38-126); ANION GAP 10 (5-19); ASPARTATE AMINO TRANSFERASE 18 U/L (14-36); BILIRUBIN,DIRECT 0.3 mg/dL (0.0-0.4); BILIRUBIN,TOTAL 0.3 mg/dL (0.2-1.3); BLOOD UREA NITROGEN 9 mg/dL (7-20); CALCIUM 9.3 mg/dL (8.4-10.2); CARBON DIOXIDE 25 mmol/L (22-30); CHLORIDE 103 mmol/L (98-107); GLUCOSE 96 mg/dL (75-110); POTASSIUM 4.1 mmol/L (3.6-5.0); TOTAL PROTEIN 7.5 g/dL (6.3-8.2)
[2019-10-13] MEDS ORDERED: LEVETIRACETAM 1000 MG/NACL-ISO 1,000 MG/100 ML RTUPB IV ONE (11:43)
--- NOTE | 2019-10-13 12:05 | ER Document Report ---
ED General - General Chief Complaint: Seizure Stated Complaint: POSSIBLE SEIZURE Time Seen by Provider: 10/13/19 10:50 Mode of Arrival: Ambulatory Notes: HPI: 29-year-old female with a long history of seizures who has been out of her Keppra seizure medication for 1 week secondary to lack of a primary care provider. She does not have insurance. She follows the [email or web address] prescription plan. She states that she believes she has had 2 seizures over the last 24 hours. Both of them were while the patient was laying down. Patient denies any pain, headache, chest pain, fevers, weakness or numbness. No incont inence or dysuria. ROS: See HPI All other review of systems reviewed and otherwise negative Reviewed vital signs and nursing note as charted by RN. PHYSICAL EXAM: CONSTITUTIONAL: Alert and oriented and responds appropriately to questions. Well-appearing; well-nourished HEAD: Normocephalic; atraumatic EYES: PERRL; no nystagmus, sclerae non-icteric ENT: Normal nose; no rhinorrhea; moist mucous membranes; pharynx without lesions noted NECK: Supple without meningismus; non-tender; no cervical lymphadenopathy, no masses CARD: Regular rate and rhythm; no murmurs; symmetric distal pulses RESP: Normal chest excursion without splinting or tachypnea; breath sounds clear and equal bilaterally ABD/GI: Normal bowel sounds; non-distended; soft, non-tender BACK: The back appears normal and is non-tender to palpation EXT: Normal ROM in all joints; non-tender to palpation; no edema SKIN: No acute lesions noted NEURO: CN 2-12 intact; 5/5 bilateral upper and lower extremity strength with sensation intact to light touch PSYCH: The patient's mood and manner are appropriate. Grooming and personal hygiene are appropriate. TRAVEL OUTSIDE OF THE [place] IN LAST 30 DAYS: No - Related Data Allergies/Adverse Reactions: NSAIDS (Non-Steroidal Anti-Inflamma Allergy (Verified 10/13/19 11:09) sertraline HCl [From Zoloft] Allergy (Verified 10/13/19 11:09) pomogranate Allergy (Uncoded 10/13/19 11:09) white chocolate Allergy (Uncoded 10/13/19 11:09) Home Medications: Keppra Past Medical History - General Information source: Patient - Social History Smoking Status: Never Smoker Family History: Reviewed & Not Pertinent, Other - Aunt has seizures Patient has suicidal ideation: No Patient has homicidal ideation: No - Past Medical History Cardiac Medical History: Reports: Hx Hypertension - pre eclampsia Neurological Medical History: Reports: Hx Seizures - keppra Renal/ Medical History: Denies: Hx Peritoneal Dialysis Psychiatric Medical History: Reports: Hx Anxiety Past Surgical History: Denies: Hx Cholecystectomy - Immunizations Immunizations up to date: Yes Hx Diphtheria, Pertussis, Tetanus Vaccination: Yes Physical Exam - Vital signs Vitals: Temp Pulse Resp BP Pulse Ox 97.7 F 85 20 137/79 H 100 10/13/19 10:55 10/13/19 10:55 10/13/19 10:55 10/13/19 10:55 10/13/19 10:55 Course - Re-evaluation Re-evalutation: 10/13/19 12:05 Given the history and physical we will obtain basic electrolytes, place the patient on the monitor, provide a bolus of IV Keppra, and reassess. If the patient's labs are unremarkable and she is not , we will start the patient on a course of Keppra with strict return precautions and help primary care follow-up through our local clinic here. 10/13/19 12:38 Labs as recorded. Patient still looks excellent. Patient will be discharged home with strict return precautions and a prescription for Keppra. - Vital Signs Vital signs: Temp Pulse Resp BP Pulse Ox 97.7 F 85 18 126/91 H 96 10/13/19 10:55 10/13/19 10:55 10/13/19 11:13 10/13/19 11:13 10/13/19 11:13 - Laboratory Result Diagrams: 10/13/19 11:07 10/13/19 11:07 Discharge - Discharge Clinical Impression: Seizure-like activity Condition: Good Disposition: HOME, SELF-CARE Additional Instructions: Come back immediately for any weakness or numbness, repeat episodes, fever, pain, or any other acute problems. Please take the medications as prescribed and [facility]. Prescriptions: Levetiracetam [Keppra 500 mg Tablet] 500 mg PO Q12 #60 tablet
[2019-10-13 12:44] LABS: APPEARANCE,URINE CLEAR; BILIRUBIN,URINE NEGATIVE (NEGATIVE); COLOR,URINE STRAW; GLUCOSE, URINE NEGATIVE (NEGATIVE); KETONES,URINE NEGATIVE (NEGATIVE); LEUKOCYTE ESTERASE,URINE TRACE (NEGATIVE); NITRITE,URINE NEGATIVE (NEGATIVE); PROTEIN,URINE NEGATIVE (NEGATIVE); URINE SPECIFIC GRAVITY 1.003; UROBILINOGEN,URINE NEGATIVE mg/dL (<2.0)
[2019-10-13 13:12] VITALS: BP 129/83
== END 2019-10-13 13:12 | disposition home or self-care (01) ==
LOC: ER 10:33
DX: R56.9 Unspecified convulsions (principal); Z88.8 Allergy status to other drugs, medicaments and biological substances; Z91.018 Allergy to other foods
CPT/HCPCS: 36415; 85025; 81025; 80053; 81001; J1953; 96374; 99284

== ENCOUNTER 2019-11-14 18:12 | Emergency (ER) | payer SELFPAY ==
--- NOTE | 2019-11-14 19:53 | ER Document Report ---
ED Medical Screen (RME) - General Chief Complaint: Medication Refill Stated Complaint: MED REFILL/SEIZURE MEDS Time Seen by Provider: 11/14/19 19:51 Notes: HPI: 29-year-old female with history of seizures over the last 10 years presenting to the emergency department stating that she possibly had a seizure this morning and is now out of her Keppra. Patient states that she has been trying to get a primary care provider or neurologist to see her and follow her but does not have insurance so has had difficulty getting a primary care provider stating that is why she keeps coming back to the emergency department for medication refills. She denies any physical complaints at this time I have greeted and performed a rapid initial assessment of this patient. A comprehensive ED assessment and evaluation of the patient, analysis of test res ults and completion of the medical decision making process will be conducted by additional ED providers PHYSICAL EXAMINATION: GENERAL: Well-appearing, well-nourished and in no acute distress. HEAD: Atraumatic, normocephalic. EYES: sclera anicteric, conjunctiva are normal. ENT: Moist mucous membranes. NECK: Normal range of motion LUNGS: Normal work of breathing HEART: Capillary refill less than 3 seconds ABD: limited by positioning for exam in triage. EXTREMITIES: no pitting or edema. No cyanosis. NEUROLOGICAL: No focal neurological deficits. Moves all extremities spontaneously and on command. PSYCH: Normal mood, normal affect. SKIN: Warm, Dry, normal turgor, no rashes or lesions noted. TRAVEL OUTSIDE OF THE [place] IN LAST 30 DAYS: No - Related Data Allergies/Adverse Reactions: NSAIDS (Non-Steroidal Anti-Inflamma Allergy (Verified 10/13/19 11:09) sertraline HCl [From Zoloft] Allergy (Verified 10/13/19 11:09) pomogranate Allergy (Uncoded 10/13/19 11:09) white chocolate Allergy (Uncoded 10/13/19 11:09) Past Medical History - Social History Family history: Reviewed & Not Pertinent - Past Medical History Cardiac Medical History: Reports: Hx Hypertension - pre eclampsia Neurological Medical History: Reports: Hx Seizures - keppra Renal/ Medical History: Denies: Hx Peritoneal Dialysis Psychiatric Medical History: Reports: Hx Anxiety Past Surgical History: Denies: Hx Cholecystectomy - Immunizations Immunizations up to date: Yes Hx Diphtheria, Pertussis, Tetanus Vaccination: Yes Physical Exam - Vital signs Vitals: Temp Pulse Resp BP Pulse Ox 98.7 F 84 16 146/99 H 98 11/14/19 18:31 11/14/19 18:31 11/14/19 18:31 11/14/19 18:31 11/14/19 18:31 Course - Vital Signs Vital signs: Temp Pulse Resp BP Pulse Ox 98.7 F 84 16 146/99 H 98 11/14/19 18:31 11/14/19 18:31 11/14/19 18:31 11/14/19 18:31 11/14/19 18:31
[2019-11-14 20:29] LABS: APPEARANCE,URINE CLEAR; BILIRUBIN,URINE NEGATIVE (NEGATIVE); COLOR,URINE STRAW; GLUCOSE, URINE NEGATIVE (NEGATIVE); KETONES,URINE NEGATIVE (NEGATIVE); LEUKOCYTE ESTERASE,URINE TRACE (NEGATIVE); NITRITE,URINE NEGATIVE (NEGATIVE); PROTEIN,URINE NEGATIVE (NEGATIVE); URINE SPECIFIC GRAVITY 1.004; UROBILINOGEN,URINE NEGATIVE mg/dL (<2.0)
[2019-11-14] MEDS ORDERED: LEVETIRACETAM 500 MG TABLET PO ONE ×2 (21:58)
--- NOTE | 2019-11-14 22:01 | ER Document Report ---
HPI - HPI Time Seen by Provider: 11/14/19 19:51 Pain Level: Denies Context: 29-year-old female with history of seizures presents for refill on her Keppra. Patient states she ran out of it this morning and possibly had a seizure this morning due to that. Patient states she does not have insurance and has attempted to call [facility] and other referrals she has been given and has been told she cannot be seen until December. Patient denies any other complaints at this time. - CONSTITUTIONAL Constitutional: DENIES: Fever, Chills - REPRODUCTIVE Reproductive: DENIES: : Past Medical History - Social History Smoking Status: Never Smoker Family History: Reviewed & Not Pertinent, Other - Aunt has seizures Patient has suicidal ideation: No Patient has homicidal ideation: No - Past Medical History Cardiac Medical History: Reports: Hx Hypertension - pre eclampsia Neurological Medical History: Reports: Hx Seizures - keppra Renal/ Medical History: Denies: Hx Peritoneal Dialysis Psychiatric Medical History: Reports: Hx Anxiety Past Surgical History: Denies: Hx Cholecystectomy - Immunizations Immunizations up to date: Yes Hx Diphtheria, Pertussis, Tetanus Vaccination: Yes Vertical Provider Document - CONSTITUTIONAL Agree With Documented VS: Yes Notes: GENERAL: Well-appearing, well-nourished and in no acute distress. HEAD: Atraumatic, normocephalic. EYES: Extraocular movements intact, sclera anicteric, conjunctiva are normal. NECK: Normal range of motion, supple without lymphadenopathy or JVD. LUNGS: Breath sounds clear to auscultation bilaterally and equal. No wheezes rales or rhonchi. HEART: Regular rate and rhythm without murmurs, rubs or gallops. EXTREMITIES: Normal range of motion, no pitting or edema. No clubbing or cyanosis. NEUROLOGICAL: Cranial nerves II through XII grossly intact. Normal speech, normal gait. PSYCH: Normal mood, normal affect. SKIN: Warm, Dry, normal turgor, no rashes or lesions noted. - INFECTION CONTROL TRAVEL OUTSIDE OF THE [place] IN LAST 30 DAYS: No Course - Re-evaluation Re-evalutation: 11/14/19 nontoxic, well-appearing 29-year-old female with history of seizures who has been on Keppra for the last 10 years presents for refill of her Keppra. Patient states she had a seizure this morning. Patient states she is on 500 mg twice daily. Patient is afebrile, non-tachycardic, non-hypoxic. PE is otherwise unremarkable. Patient was loaded with thousand milligrams of Keppra p.o. and given prescription for 1 month supply with 1 refill. Patient was also given referrals to various clinics for to establish a PCP. Return precautions were given. Discussed UA with patient. Patient voices understanding and agrees with plan of care. - Vital Signs Vital signs: Temp Pulse Resp BP Pulse Ox 98.7 F 84 16 146/99 H 98 11/14/19 18:31 11/14/19 18:31 11/14/19 18:31 11/14/19 18:31 11/14/19 18:31 - Laboratory Laboratory results interpreted by me: 11/14/19 20:00 Urine Blood MODERATE H Ur Leukocyte Esterase TRACE H Discharge - Discharge Clinical Impression: Seizure, Medication refill Condition: Stable Disposition: HOME, SELF-CARE Instructions: Seizure, Known Epileptic ([facility]) Additional Instructions: Please take your medication as prescribed. We loaded you with Keppra 1000 mg tonight in the ER. Please follow-up with 1 of the clinics listed in 3 to 5 days. Return immediately to ER for any worsening symptoms, including breakthrough seizures, fever, chest pain, abdominal pain, nausea/vomiting, diarrhea, constipation, or any other symptoms that are concerning to you. Prescriptions: Levetiracetam [Keppra 500 mg Tablet] 500 mg PO Q12 #60 tablet Referrals: PERFECTO RENDON MD [ACTIVE STAFF] - Follow up in 3-5 days [facility] [Provider Group] - Follow up in 3-5 days
[2019-11-14 22:25] VITALS: BP 151/96
== END 2019-11-14 22:23 | disposition home or self-care (01) ==
LOC: ER 18:12
DX: Z76.0 Encounter for issue of repeat prescription (principal); R56.9 Unspecified convulsions; Z79.899 Other long term (current) drug therapy
CPT/HCPCS: 81001; 81025; 99282

== ENCOUNTER 2020-01-15 12:08 | Emergency (ER) | payer SELFPAY ==
[2020-01-15 12:13] VITALS: BP 154/89
--- NOTE | 2020-01-15 12:38 | ER Document Report ---
HPI - HPI Patient complains to provider of: Medication refill Time Seen by Provider: 01/15/20 12:28 Onset: This morning Quality of pain: No pain Context: Patient presents requesting a refill of her Keppra for her seizure disorder. Patient denies any recent seizures. Last dose of medication was last night. Patient states she does not have a primary doctor and does not have anyone to follow-up with to get a refill. Patient states that she reported dizziness as she was anxious about coming in here and asking for a prescription for her med. Patient denies any headache chest pain nausea vomiting. Patient denies any symptoms at this time. Exacerbated by: Denies Relieved by: Denies Similar symptoms previously: Yes Recently seen / treated by doctor: No - ROS ROS below otherwise negative: Yes Systems Reviewed and Negative: Yes All other systems reviewed and negative - NEURO Neurology: DENIES: Headache, Weakness - CARDIOVASCULAR Cardiovascular: DENIES: Chest pain - RESPIRATORY Respiratory: DENIES: Trouble Breathing, Coughing - REPRODUCTIVE Reproductive: DENIES: : - DERM Skin Color: Normal Skin Problems: None Past Medical History - General Information source: Patient - Social History Smoking Status: Never Smoker Frequency of alcohol use: None Drug Abuse: None Occupation: None Family History: Reviewed & Not Pertinent, Other - Aunt has seizures Neurological Medical History: Reports: Hx Seizures - keppra Renal/ Medical History: Denies: Hx Peritoneal Dialysis Psychiatric Medical History: Reports: Hx Anxiety Surgical Hx: Negative Past Surgical History: Denies: Hx Cholecystectomy - Immunizations Immunizations up to date: Yes Hx Diphtheria, Pertussis, Tetanus Vaccination: Yes Vertical Provider Document - CONSTITUTIONAL Agree With Documented VS: Yes Exam Limitations: No Limitations General Appearance: WD/WN, No Apparent Distress - INFECTION CONTROL TRAVEL OUTSIDE OF THE [place] IN LAST 30 DAYS: No - HEENT HEENT: Atraumatic, Normocephalic - NECK Neck: Normal Inspection, Supple. negative: Lymphadenopathy-Left, Lymphadenopathy-Right - RESPIRATORY Respiratory: Breath Sounds Normal, No Respiratory Distress - CARDIOVASCULAR Cardiovascular: Regular Rate, Regular Rhythm, No Murmur - BACK Back: Normal Inspection - MUSCULOSKELETAL/EXTREMETIES Musculoskeletal/Extremeties: MAEW - NEURO Level of Consciousness: Awake, Alert, Appropriate Motor/Sensory: No Motor Deficit - DERM Integumentary: Warm, Dry, No Rash Course - Vital Signs Vital signs: Temp Pulse Resp BP Pulse Ox 98.3 F 92 16 154/89 H 97 01/15/20 12:11 01/15/20 12:11 01/15/20 12:11 01/15/20 12:11 01/15/20 12:11 Discharge - Discharge Clinical Impression: Seizure disorder, Medication refill Condition: Stable Disposition: HOME, SELF-CARE Instructions: Seizure, Known Epileptic ([facility]) Additional Instructions: Return immediately for any new or worsening symptoms Followup with a primary care provider, call tomorrow to make a followup appointment Prescriptions: Levetiracetam [Keppra 500 mg Tablet] 500 mg PO Q12 #60 tablet Referrals: [facility] [Provider Group] - Follow up as needed [facility] [Provider Group] - Follow up as needed
== END 2020-01-15 12:42 | disposition home or self-care (01) ==
LOC: ER 12:08
DX: Z76.0 Encounter for issue of repeat prescription (principal); G40.909 Epilepsy, unspecified, not intractable, without status epilepticus; Z79.899 Other long term (current) drug therapy
CPT/HCPCS: 99281

== ENCOUNTER 2020-02-15 08:57 | Emergency (ER) | payer SELFPAY ==
[2020-02-15] MEDS ORDERED: LEVETIRACETAM 1000 MG/NACL-ISO 1,000 MG/100 ML RTUPB IV ONE (10:02)
--- NOTE | 2020-02-15 10:05 | ER Document Report ---
ED General - General Chief Complaint: Ankle Pain Stated Complaint: FALL/RIGHT ANKLE PAIN Time Seen by Provider: 02/15/20 09:42 Notes: HPI: 29-year-old female who presents today stating she had a witnessed tonic- clonic seizure falling to the ground with some pain when she woke up to the right lateral ankle. Patient states she has a history of seizures. She has no primary care physician or neurologist. She states she went out of her seizure medication 3 days ago. This is consistent with her last seizure medication prescription filled around January 13 here at this facility. Patient denies any headache, neck pain, chest pain, lilian pain, anterior posterior rib pain, midline back pain. This was a witnessed seizure. ROS: See HPI All other review of systems reviewed and otherwise negative Reviewed vital signs and nursing note as charted by RN. PHYSICAL EXAM: CONSTITUTIONAL: Alert and oriented and responds appropriately to questions. Well-appearing; well-nourished HEAD: Normocephalic; atraumatic EYES: PERRL; Conjunctivae clear, sclerae non-icteric ENT: No tongue or intraoral lesions present NECK: Supple without meningismus; non-tender; no cervical lymphadenopathy, no masses CARD: Regular rate and rhythm; no murmurs; symmetric distal pulses RESP: Normal chest excursion without splinting or tachypnea; breath sounds clear and equal bilaterally; no wheezes, no rhonchi, no rales ABD/GI: Normal bowel sounds; non-distended; soft, non-tender; no palpable organomegaly or masses BACK: The back appears normal and is non-tender to palpation EXT: Patient has some swelling with no surrounding erythema to the right lateral malleolus. No tenderness to the foot or proximal tibia/fibula. Strong distal pulses to the dorsalis pedis region with sensation intact light touch SKIN: No acute lesions noted NEURO: CN 2-12 intact; 5/5 bilateral upper and lower extremity strength with sensation intact to light touch PSYCH: The patient's mood and manner are appropriate. Grooming and personal hygiene are appropriate. TRAVEL OUTSIDE OF THE [place] IN LAST 30 DAYS: No - Related Data Allergies/Adverse Reactions: sertraline HCl [From Zoloft] Allergy (Verified 01/15/20 12:31) pomogranate Allergy (Uncoded 10/13/19 11:09) white chocolate Allergy (Uncoded 10/13/19 11:09) Home Medications: Keppra Past Medical History - Social History Smoking Status: Unknown if Ever Smoked Family History: Reviewed & Not Pertinent, Other - Aunt has seizures Patient has homicidal ideation: No - Past Medical History Cardiac Medical History: Reports: Hx Hypertension - pre eclampsia Neurological Medical History: Reports: Hx Seizures - keppra Renal/ Medical History: Denies: Hx Peritoneal Dialysis Psychiatric Medical History: Reports: Hx Anxiety Past Surgical History: Denies: Hx Cholecystectomy - Immunizations Immunizations up to date: Yes Hx Diphtheria, Pertussis, Tetanus Vaccination: Yes Physical Exam - Vital signs Vitals: Temp Pulse Resp BP Pulse Ox 97.9 F 92 16 151/91 H 97 02/15/20 09:01 02/15/20 09:01 02/15/20 09:01 02/15/20 09:01 02/15/20 09:01 Course - Re-evaluation Re-evalutation: 02/15/20 10:04 Given the above history and physical examination, we will obtain basic labs, place the patient on the monitor, provide IV Keppra, perform an x-ray of the right ankle and reassess. I would like to assess for the possibility of electrolyte abnormality right ankle fracture. I would also like to bolus the patient home missing seizure medications. I will provide a repeat prescription and have the patient follow with the [facility] here locally. 02/15/20 11:28 Labs as recorded. Keppra has been given. Splint has been placed by the [facility]. Patient will be discharged home with a prescription for Keppra and orthopedic referral with strict return precautions. - Vital Signs Vital signs: Temp Pulse Resp BP Pulse Ox 97.9 F 92 16 129/94 H 98 02/15/20 09:36 02/15/20 09:01 02/15/20 11:01 02/15/20 11:01 02/15/20 11:01 - Laboratory Result Diagrams: 02/15/20 10:26 02/15/20 10:26 Laboratory results interpreted by me: 02/15/20 10:26 BUN 6 L Discharge - Discharge Clinical Impression: Seizure Closed right ankle fracture Qualifiers: Encounter type: initial encounter Qualified Code(s): S82.891A - Other fracture of right lower leg, initial encounter for closed fracture Condition: Good Disposition: HOME, SELF-CARE Additional Instructions: Please make sure that you take your medications as prescribed. [facility]. Return immediately with any increased leg pain, foot pain, repeat seizures, fevers or vomiting, weakness or numbness, or any other acute problems. I have provided orthopedics for your follow-up. Please ice, rest, elevate your foot and leg when not ambulating. Prescriptions: Levetiracetam [Keppra 500 mg Tablet] 500 mg PO Q12 #60 tablet Referrals: DUSTY SANCHEZ, [ACTIVE STAFF] - Follow up as needed
--- NOTE | 2020-02-15 10:39 | RADIOLOGY REPORT (SQ) ---
EXAM DESCRIPTION: ANKLE RIGHT COMPLETE IMAGES COMPLETED DATE/TIME: 02/15/2020 10:21 am REASON FOR STUDY: 11; fall; lateral malleolus COMPARISON: Move right ankle radiographs 10/14/2017. NUMBER OF VIEWS: Three views. TECHNIQUE: AP, lateral, and oblique radiographic images acquired of the right ankle. LIMITATIONS: None. FINDINGS: MINERALIZATION: Normal. BONES: 5 mm ossicle anterior to the lateral malleolus. No worrisome bone lesions. Small calcaneal p lantar enthesophyte. JOINTS: No effusions. SOFT TISSUES: No soft tissue swelling. No foreign body. OTHER: No other significant finding. IMPRESSION: 5 mm ossicle anterior to the lateral malleolus compatible with ligamentous avulsion type injury. TECHNICAL DOCUMENTATION: JOB ID: [id number] 2010 [email or web address]- All Rights Reserved Reading location - IP/workstation name: [email or web address]
[2020-02-15 10:51] LABS: ABSOLUTE BASOPHILS # (AUTO) 0.1 10^3/uL (0.0-0.2); ABSOLUTE EOSINOPHILS # (AUTO) 0.1 10^3/uL (0.0-0.6); ABSOLUTE LYMPHOCYTES (AUTO) 1.8 10^3/uL (0.5-4.7); ABSOLUTE MONOCYTES (AUTO) 0.5 10^3/uL (0.1-1.4); ABSOLUTE NEUT (AUTO) 6.8 10^3/uL (1.7-8.2); BASOPHILS % (AUTO) 0.8 % (0-2); EOSINOPHILS % (AUTO) 1.6 % (0-6); HEMATOCRIT 42.9 % (36.0-47.0); HEMOGLOBIN 14.7 g/dL (12.0-15.5); LYMPHOCYTES % (AUTO) 18.8 % (13-45); MEAN CORPUSCULAR HEMOGLOBIN 32.9 pg (27.0-33.4); MEAN CORPUSCULAR HGB CONC 34.2 g/dL (32.0-36.0); MEAN CORPUSCULAR VOLUME 96 fl (80-97); MONOCYTES % (AUTO) 5.4 % (3-13); PLATELET COUNT 316 10^3/uL (150-450); RED BLOOD COUNT 4.46 10^6/uL (3.72-5.28); RED CELL DISTRIBUTION WIDTH 12.6 % (11.5-14.0); SEGMENTED NEUTROPHILS % (AUTO) 73.4 % (42-78); TOTAL CELLS COUNTED % (AUTO) 100 %; WHITE BLOOD COUNT 9.3 10^3/uL (4.0-10.5)
[2020-02-15 11:11] LABS: ALBUMIN 4.4 g/dL (3.5-5.0); ALKALINE PHOSPHATASE 77 U/L (38-126); ANION GAP 9 (5-19); ASPARTATE AMINO TRANSFERASE 22 U/L (14-36); BILIRUBIN,TOTAL 0.4 mg/dL (0.2-1.3); BLOOD UREA NITROGEN 6 mg/dL (7-20); CALCIUM 9.4 mg/dL (8.4-10.2); CARBON DIOXIDE 24 mmol/L (22-30); CHLORIDE 105 mmol/L (98-107); GLUCOSE 109 mg/dL (75-110); TOTAL PROTEIN 7.7 g/dL (6.3-8.2)
[2020-02-15 11:49] VITALS: BP 137/99
== END 2020-02-15 11:56 | disposition home or self-care (01) ==
LOC: ER 08:57
DX: S82.891A Other fracture of right lower leg, initial encounter for closed fracture (principal); R56.9 Unspecified convulsions; M25.571 Pain in right ankle and joints of right foot; X58.XXXA Exposure to other specified factors, initial encounter; I10 Essential (primary) hypertension; Z79.899 Other long term (current) drug therapy
CPT/HCPCS: 99284; 96365; 36415; 85025; 80053; 73610; J1953

== ENCOUNTER 2020-03-16 09:39 | Emergency (ER) | payer SELFPAY ==
[2020-03-16 09:43] VITALS: BP 145/98
--- NOTE | 2020-03-16 10:26 | ER Document Report ---
HPI - HPI Time Seen by Provider: 03/16/20 10:21 Pain Level: Denies Notes: CHIEF COMPLAINT: Medication refill for seizures HPI: History is obtained from the patient her friend and the records. 29-year-old female who has history of seizure disorder for which she is on Keppra twice a day presenting for dizziness and lightheadedness which she states often precedes seizures. She is been out of her medication for a week. Patient attempting to go to the [facility] but states that she is on a wait list and has not been able to get an ROS: See HPI - all other systems were reviewed and are otherwise negative Constitutional: no fever Eyes: no drainage, no blurred vision ENT: no runny nose, no sore throat Cardiovascular: no chest pain Resp: no SOB, no cough GI: no vomiting, no diarrhea, no abdominal pain : no dysuria Integumentary: no rash Allergy: no hives Musculoskeletal: no extremity pain or swelling Neurological: no numbness/tingling, no weakness, positive lightheadedness MEDICATIONS: I agree with the patient medications as charted by the RN. ALLERGIES: I agree with the allergies as charted by the RN. PAST MEDICAL HISTORY/PAST SURGICAL HISTORY: Reviewed and agree as charted by RN. SOCIAL HISTORY: Reviewed and agree as charted by RN. FAMILY HISTORY: No significant familial comorbid conditions directly related to patient complaint EXAM: Reviewed vital signs as charted by RN. CONSTITUTIONAL: Alert and oriented and responds appropriately to questions. Well-appearing; well-nourished HEAD: Normocephalic; atraumatic EYES: PERRL; Conjunctivae clear, sclerae non-icteric. No nystagmus ENT: normal nose; no rhinorrhea; moist mucous membranes NECK: Supple without meningismus; non-tender; no cervical lymphadenopathy, no masses CARD: RRR; no murmurs, no clicks, no rubs, no gallops; symmetric distal pulses RESP: Normal chest excursion without splinting or tachypnea; breath sounds clear and equal bilaterally; no wheezes, no rhonchi, no rales, pulse oximetry 98% on room air not hypoxic ABD/GI: Normal bowel sounds; non-distended; soft, non-tender, no rebound, no guarding; no palpable organomegaly or masses. BACK: The back appears normal and is non-tender to palpation, there is no CVA tenderness EXT: Normal ROM in all joints; non-tender to palpation; no cyanosis, no effusions, no edema SKIN: Normal color for age and race; warm; dry; good turgor; no acute lesions noted NEURO: Moves all extremities equally; Motor and sensory function intact PSYCH: The patient's mood and manner are appropriate. Grooming and personal hygiene are appropriate. MDM: 29-year-old female with seizure disorder on Keppra chronically. Ligh theadedness that she states often precedes a seizure. I have spoken with Yuliana from the discharge planning office. On review of the records patient comes to the ER every month for the last 6 months for medication refills. I spoke with the patient about this at length. It is more appropriate for her to obtain some kind of primary care follow-up rather than come to the emergency department as s he is aware we are not a primary care clinic and cannot chronically manage her ongoing medication refills. Discharge planning will look into the matter for the patient and will call me back to discuss a possible plan for the patient that may help facilitate getting her into a primary care provider patient is aware of this. - REPRODUCTIVE Reproductive: DENIES: : Past Medical History - Social History Smoking Status: Never Smoker Frequency of alcohol use: None Drug Abuse: None Family History: Reviewed & Not Pertinent, Other - Aunt has seizures - Past Medical History Cardiac Medical History: Reports: Hx Hypertension - pre eclampsia Neurological Medical History: Reports: Hx Seizures - keppra Renal/ Medical History: Denies: Hx Peritoneal Dialysis Psychiatric Medical History: Reports: Hx Anxiety Past Surgical History: Denies: Hx Cholecystectomy - Immunizations Immunizations up to date: Yes Hx Diphtheria, Pertussis, Tetanus Vaccination: Yes Vertical Provider Document - INFECTION CONTROL TRAVEL OUTSIDE OF THE [place] IN LAST 30 DAYS: No Course - Re-evaluation Re-evalutation: 03/16/20 11:34 I spoke with Javan Araya, [employer] work. She states that they attempted to reach out to the patient previously and patient hung up on them several months ago. She will call the [facility] and have them reach out to her also placed the patient in for quantometer operator visit to reassess her in community. I will write the patient a prescription at this time but patient will be made aware that this is the last time the emergency department will fill her seizure medications as it is more appropriate that she obtain primary care follow-up as she has had visits every month for 6 months to the emergency department for medication refills - Vital Signs Vital signs: Temp Pulse Resp BP Pulse Ox 98.8 F 98 16 145/98 H 99 03/16/20 09:42 03/16/20 09:42 03/16/20 09:42 03/16/20 09:42 03/16/20 09:42 Discharge - Discharge Clinical Impression: Medication refill Condition: Stable Disposition: HOME, SELF-CARE Additional Instructions: You have been seen today for another medication refill. You will not receive further medication refills for your seizure medications from the emergency department. You have had visits to the emergency department every month for the last 6 months for medication refills. It is more appropriate that you follow with a primary care provider for this. We have reached out to our social workers who will reach out to the [facility] and also set you up for community follow-up. You should expect a phone call from either the social media intern or the community clinic regarding follow-up. Prescriptions: Levetiracetam [Keppra 500 mg Tablet] 500 mg PO Q12 #60 tablet Referrals: JAMARI MERAZ MD [COMMUNITY BASED STAFF] - Follow up as needed
== END 2020-03-16 11:42 | disposition home or self-care (01) ==
LOC: ER 09:39
DX: Z76.0 Encounter for issue of repeat prescription (principal); G40.909 Epilepsy, unspecified, not intractable, without status epilepticus; R42 Dizziness and giddiness
CPT/HCPCS: 99283

== ENCOUNTER 2020-04-28 15:10 | Emergency (ER) | payer SELFPAY ==
--- NOTE | 2020-04-28 15:17 | ER Document Report ---
ED General - General Chief Complaint: Probable Seizure Stated Complaint: POSSIBLE SEIZURE Time Seen by Provider: 04/28/20 15:17 Notes: With epilepsy and noncompliance versus pseudoseizure behavioral presents with same. Witnessed. Has had innumerable ED visits for the same is not able to follow-up with neurology or primary care and is on a half dose of Keppra that she was when she lived in [place]. She now on 500 twice daily. She stressed and anxious and is tired of seizing front of her kids. Denies drug and alcohol use. Innumerable ED work-ups have been negative. Vitals and blood sugar from EMS found than tachycardia. Patient is tearful TRAVEL OUTSIDE OF THE [place] IN LAST 30 DAYS: No - Related Data Allergies/Adverse Reactions: sertraline HCl [From Zoloft] Allergy (Verified 01/15/20 12:31) pomogranate Allergy (Uncoded 10/13/19 11:09) white chocolate Allergy (Uncoded 10/13/19 11:09) Past Medical History - General Information source: Patient - Social History Smoking Status: Unknown if Ever Smoked Family History: Reviewed & Not Pertinent, Other - Aunt has seizures - Past Medical History Cardiac Medical History: Reports: Hx Hypertension - pre eclampsia Neurological Medical History: Reports: Hx Seizures - keppra Renal/ Medical History: Denies: Hx Peritoneal Dialysis Psychiatric Medical History: Reports: Hx Anxiety Past Surgical History: Denies: Hx Cholecystectomy - Immunizations Immunizations up to date: Yes Hx Diphtheria, Pertussis, Tetanus Vaccination: Yes Review of Systems - Review of Systems Notes: REVIEW OF SYSTEMS GEN: Denies fever, chills, weight loss ENT: Denies sore throat, nasal discharge, ear pain EYES: Denies blurry vision, eye pain, discharge CV: Denies chest pain, palpitations, edema RESP: Denies cough, shortness of breath, wheezing GI: Denies abdominal pain, nausea, vomiting, diarrhea MSK: Denies joint pain/swelling, edema, SKIN: Denies rash, skin lesions LYMPH: Denies swollen glands/lymph nodes NEURO:? Denies headache, focal weakness or numbness, dizziness PSYCH: Anxiety PHYSICAL EXAMINATION General: No acute distress, well-nourished Head: Atraumatic, normocephalic ENT: Mouth normal, oropharynx moist, no exudates or tonsillar enlargement Eyes: Conjunctiva normal, pupils equal, lids normal Neck: No JVD, supple, no guarding CVS: Normal rate, regular rhythm, no murmurs Resp: No resp distress, equal and normal breath sounds bilaterally GI: Nondistended, soft, no tenderness to palpation, no rebound or guarding Ext: No deformities, no edema, normal range of motion in upper and lower ext Back: No CVA or midline TTP Skin: No rash, warm Lymphatic: No lymphadeopathy noted Neuro: No tongue trauma. Awake, alert. Face symmetric. GCS 15. : Anxious Course - Re-evaluation Re-evalutation: 04/28/20 15:20 Breakthrough seizure with epilepsy secondary to meds versus psychogenic nonepileptic seizures either with the patient looks well is very anxious will give Ativan for that, along with her tachycardia encourage her to hydrate orally. Do not think she needs labs cannot measure a Keppra level. We will start her back on 1000 twice daily and refer her to neurology in the clinic. I have discussed with the patient there likely diagnosis, aftercare plan, follow- up plans and my usual and customary return precautions. They verbalized und erstanding of this. Discharge - Discharge Clinical Impression: Breakthrough seizure Condition: Good Disposition: HOME, SELF-CARE Instructions: Seizure, Known Epileptic ([facility]) Prescriptions: Levetiracetam [Keppra] 1,000 mg PO BID #60 tablet
[2020-04-28] MEDS ORDERED: LORAZEPAM INJ 2 MG/1 ML VIAL IV ONE (15:19)
[2020-04-28 16:10] VITALS: BP 124/86
== END 2020-04-28 16:01 | disposition home or self-care (01) ==
LOC: ER 15:10
DX: R56.9 Unspecified convulsions (principal); F41.9 Anxiety disorder, unspecified; R00.0 Tachycardia, unspecified; Z79.899 Other long term (current) drug therapy; Z88.8 Allergy status to other drugs, medicaments and biological substances; Z91.018 Allergy to other foods
CPT/HCPCS: 99284; 96374; J2060

== ENCOUNTER 2020-07-07 17:54 | Emergency (ER) | payer SELFPAY ==
--- NOTE | 2020-07-07 18:50 | ER Document Report ---
ED Medical Screen (RME) - General Chief Complaint: Seizure Stated Complaint: SEIZURE PRIOR TO ARRIVAL Time Seen by Provider: 07/07/20 18:35 Mode of Arrival: Wheelchair Information source: Patient Notes: 30-year-old female presented to ED for complaint of seizure 30 minutes before coming to the emergency room. Mother states she wet herself. She states she felt really dizzy and then she tensed up both arms tensed up hands were jerking for about a minute. Mother states she was then unable to respond for another 2 or 3 minutes but she is able to talk now. She states she does not smoke drink or use any drugs. Mother states she supposed to be on Keppra but she does not have the money to buy the Keppra or to go to the doctor to get the Keppra. She states she is supposed to get an MRI but she cannot afford to get the MRI. She states she has been to this hospital many times and the doctors been very rude to her and told her that they cannot give her any more the medicine. She states they have asked for discharge planning and no one has ever called them. She states [facility] help her to get the medicine and the care she needs. I have greeted and performed a rapid initial assessment of this patient. A comprehensive ED assessment and evaluation of the patient, analysis of test results and completion of medical decision making process will be conducted by an additional ED providers. TRAVEL OUTSIDE OF THE [place] IN LAST 30 DAYS: No - Related Data Allergies/Adverse Reactions: sertraline HCl [From Zoloft] Allergy (Verified 01/15/20 12:31) pomogranate Allergy (Uncoded 10/13/19 11:09) white chocolate Allergy (Uncoded 10/13/19 11:09) Past Medical History - Social History Family history: Reviewed & Not Pertinent - Past Medical History Cardiac Medical History: Reports: Hx Hypertension - pre eclampsia Neurological Medical History: Reports: Hx Seizures - keppra Renal/ Medical History: Denies: Hx Peritoneal Dialysis Psychiatric Medical History: Reports: Hx Anxiety Past Surgical History: Denies: Hx Cholecystectomy - Immunizations Immunizations up to date: Yes Hx Diphtheria, Pertussis, Tetanus Vaccination: Yes Physical Exam - Vital signs Vitals: Temp Pulse Resp BP Pulse Ox 98.6 F 91 18 154/111 H 98 07/07/20 18:01 07/07/20 18:01 07/07/20 18:01 07/07/20 18:01 07/07/20 18:01 Course - Vital Signs Vital signs: Temp Pulse Resp BP Pulse Ox 98.6 F 91 18 154/111 H 98 07/07/20 18:01 07/07/20 18:01 07/07/20 18:01 07/07/20 18:01 07/07/20 18:01
[2020-07-07] MEDS ORDERED: LORAZEPAM INJ 2 MG/1 ML VIAL IV ONE (19:49)
--- NOTE | 2020-07-07 19:49 | ER Document Report ---
ED Seizure - General Chief Complaint: Seizure Stated Complaint: SEIZURE PRIOR TO ARRIVAL Time Seen by Provider: 07/07/20 18:35 Mode of Arrival: Wheelchair Information source: Patient, Parent Notes: This 30-year-old woman presents to the emergency department with a history of seizure episode occurring approximately 30 minutes prior to coming into the emergency department. Apparently, felt dizzy and then had a tensing up episode with a few minutes of jerking and incontinence of urine. Patient has not taken anticonvulsive (Keppra) since the last of May. She has run out of medications and does not have a physician to prescribe the medicines nor money to afford the prescription. She has been seen in the emergency department on multiple occasions seizure he denies injury associated with this episode and presently complains of feeling fatigued and sore/achy. The episode was witn essed by her mother. The mother states that this was a mild episode compared to the more severe jerking episodes. - Related Data Allergies/Adverse Reactions: sertraline HCl [From Zoloft] Allergy (Verified 01/15/20 12:31) pomogranate Allergy (Uncoded 10/13/19 11:09) white chocolate Allergy (Uncoded 10/13/19 11:09) Past Medical History - General Information source: Patient - Social History Smoking Status: Unknown if Ever Smoked Family History: Reviewed & Not Pertinent, Other - Aunt has seizures - Past Medical History Cardiac Medical History: Reports: Hx Hypertension - pre eclampsia Neurological Medical History: Reports: Hx Seizures - keppra Renal/ Medical History: Denies: Hx Peritoneal Dialysis Psychiatric Medical History: Reports: Hx Anxiety Past Surgical History: Denies: Hx Cholecystectomy - Immunizations Immunizations up to date: Yes Hx Diphtheria, Pertussis, Tetanus Vaccination: Yes Review of Systems - Review of Systems Notes: Constitutional: Negative for fever. HENT: Negative for sore throat. Eyes: Negative for visual changes. Cardiovascular: Negative for chest pain. Respiratory: Negative for shortness of breath. Gastrointestinal: Negative for abdominal pain, vomiting or diarrhea. Genitourinary: Negative for dysuria. Musculoskeletal: Negative for back pain. Skin: Negative for rash. Neurological: See HPI 10 point ROS negative except as marked above and in HPI. Physical Exam - Vital signs Vitals: Temp Pulse Resp BP Pulse Ox 98.6 F 91 18 154/111 H 98 07/07/20 18:01 07/07/20 18:01 07/07/20 18:01 07/07/20 18:01 07/07/20 18:01 - Notes Notes: PHYSICAL EXAMINATION: Physical Exam: General: Well-nourished well-developed 30-year-old woman in no acute distress HEENT: NC/AT, pupils equal round and reactive to light, MM moist,nares clear, oropharynx clear, airway patent Neck: supple, no adenopathy, no masses. Good range of motion Lungs: clear, no wheezing, no rales no rhonchi CVS: Regular rate and rhythm no murmur gallop or rub Abdomen: Soft, active, nontender, no masses, no hepatosplenomegaly Ext: No edema, clubbing or cyanosis. Neuro: Alert and responsive, moving all 4 extremities on command, cranial nerves intact, no focal findings Skin: Intact no open lesions, no rash Course - Re-evaluation Re-evalutation: 07/07/20 20:12 Patient was given a loading dose of Keppra 1000 mg IV, she is also given lorazepam 1 mg IV. I have discussed with the patient and her mother will give her a prescription for 1000 mg twice daily of Keppra, 60 tablets. [facility] and [facility]. The patient is doing well and no further seizure activity. - Vital Signs Vital signs: Temp Pulse Resp BP Pulse Ox 98.6 F 91 18 154/111 H 98 07/07/20 18:01 07/07/20 18:01 07/07/20 18:01 07/07/20 18:01 07/07/20 18:01 - Laboratory Result Diagrams: 07/07/20 19:44 07/07/20 19:44 Discharge - Discharge Clinical Impression: Seizure, Seizure disorder Condition: Good Disposition: HOME, SELF-CARE Instructions: Seizure, Known Epileptic ([facility]) Additional Instructions: You are seen in the emergency department tonight with an episode of seizure. Please take the Keppra as prescribed, please [facility] regarding further medical evaluation and prescriptions. If you have further difficulties or other concerns you may return to the emergency department for further evaluation and treatment HOME CARE INSTRUCTIONS & INFORMATION: Thank you for choosing us for your medical needs. We hope you're satisfied with the care you received. After you leave, you must properly care for your problem and, at the same time, observe its progress. Any condition can change. Some illnesses can change rapidly over hours or days. If your condition worsens, return to the Emergency Department or see your physician promptly. ABOUT YOUR X-RAYS AND EKG'S: If you had an EKG or X-rays taken, they have been read by the Emergency Physician. The X-rays and EKG's will also be read by a Radiologist or Horse Show Judge within 24 hours. If discrepancies are noted, you will be notified by telephone. Please be certain the ED has a correct telephone number & address where you can be reached. Also, realize that some fractures or abnormalities do not show up on initial X-rays. If your symptoms continue, see your physician. ABOUT YOUR LABORATORY TEST: If you had laboratory tests, the results have been reviewed by the Emergency Physician. Some test results (for example cultures) may not be available for several days. You will be contacted if any test result shows you need additional treatment. Please be certain the ED has a correct telephone number and address where you can be reached. ABOUT YOUR MEDICATIONS: You will receive instructions on how to take your medicine on the prescription label you receive. Additional information may be provided by the Pharmacy. If you have questions afterwards, call the ED for clarification or further instructions. Some prescribed medications may cause drowsiness. Do not perform tasks such as driving a car or operating machinery without consulting your Pharmacist. If you feel you need a refill of pain medication, your condition will need re-evaluation. Please do not call for a refill of any medication. ABOUT YOUR SIGNATURE: Signature of this document acknowledges to followin. Understanding that you received emergency treatment and that you may be released before al medical problems are known or treated. Please be certain the ED has a correct phone number & address where you can be reached. 2. Acknowledgement that you will arrange for follow-up care as recommended. 3. Authorization for the Emergency Physician to provide information to your follow-up Physician in order to maximize your care. AT ANY TIME, IF YOUR SYMPTOMS CHANGE SIGNIFICANTLY OR WORSEN OR YOU DEVELOP NEW SYMPTOMS, RETURN TO THE EMERGENCY DEPARTMENT IMMEDIATELY FOR RE-EVALUATION. OUR GOAL IS TO PROVIDE EXCELLENT MEDICAL CARE! WE HOPE THAT WE HAVE MET YOUR EXPECTATIONS DURING YOUR EMERGENCY DEPARTMENT VISIT AND THAT YOU FEEL YOU HAVE RECEIVED EXCELLENT CARE! Prescriptions: Levetiracetam [Keppra] 1,000 mg PO BID #60 tablet Referrals: [facility] [Provider Group] - Follow up as needed
[2020-07-07] MEDS ORDERED: LEVETIRACETAM 1000 MG/NACL-ISO 1,000 MG/100 ML RTUPB IV ONE (19:50)
[2020-07-07] MEDS ORDERED: NORMAL SALINE 500 ML IV ONE (19:51)
[2020-07-07 20:07] LABS: ABSOLUTE BASOPHILS # (AUTO) 0.1 10^3/uL (0.0-0.2); ABSOLUTE EOSINOPHILS # (AUTO) 0.1 10^3/uL (0.0-0.6); ABSOLUTE MONOCYTES (AUTO) 0.6 10^3/uL (0.1-1.4); ABSOLUTE NEUT (AUTO) 6.9 10^3/uL (1.7-8.2); BASOPHILS % (AUTO) 0.8 % (0-2); HEMATOCRIT 42.7 % (36.0-47.0); HEMOGLOBIN 14.6 g/dL (12.0-15.5); LYMPHOCYTES % (AUTO) 20.6 % (13-45); MEAN CORPUSCULAR HEMOGLOBIN 32.4 pg (27.0-33.4); MEAN CORPUSCULAR HGB CONC 34.3 g/dL (32.0-36.0); MEAN CORPUSCULAR VOLUME 95 fl (80-97); MONOCYTES % (AUTO) 5.8 % (3-13); PLATELET COUNT 303 10^3/uL (150-450); RED BLOOD COUNT 4.51 10^6/uL (3.72-5.28); RED CELL DISTRIBUTION WIDTH 12.7 % (11.5-14.0); SEGMENTED NEUTROPHILS % (AUTO) 71.8 % (42-78); TOTAL CELLS COUNTED % (AUTO) 100 %; WHITE BLOOD COUNT 9.6 10^3/uL (4.0-10.5)
[2020-07-07 20:16] LABS: APPEARANCE,URINE CLOUDY; BILIRUBIN,URINE NEGATIVE (NEGATIVE); COLOR,URINE YELLOW; GLUCOSE, URINE NEGATIVE (NEGATIVE); KETONES,URINE NEGATIVE (NEGATIVE); LEUKOCYTE ESTERASE,URINE LARGE (NEGATIVE); NITRITE,URINE NEGATIVE (NEGATIVE); PROTEIN,URINE NEGATIVE (NEGATIVE); URINE SPECIFIC GRAVITY 1.005; UROBILINOGEN,URINE NEGATIVE mg/dL (<2.0)
[2020-07-07 20:27] LABS: URINE AMPHETAMINES SCREEN NEGATIVE; URINE BARBITURATES SCREEN NEGATIVE; URINE BENZODIAZEPINES SCREEN NEGATIVE; URINE COCAINE SCREEN NEGATIVE; URINE MARIJUANA (THC) SCREEN NEGATIVE; URINE METHADONE SCREEN NEGATIVE; URINE PHENCYCLIDINE SCREEN NEGATIVE
[2020-07-07 20:29] LABS: ALBUMIN 4.3 g/dL (3.5-5.0); ALCOHOL < 10 mg/dL (NONE DETECTED); ALKALINE PHOSPHATASE 78 U/L (38-126); ANION GAP 10 (5-19); ASPARTATE AMINO TRANSFERASE 27 U/L (14-36); BILIRUBIN,DIRECT 0.2 mg/dL (0.0-0.4); BILIRUBIN,TOTAL 0.3 mg/dL (0.2-1.3); BLOOD UREA NITROGEN 6 mg/dL (7-20); CALCIUM 9.7 mg/dL (8.4-10.2); CARBON DIOXIDE 22 mmol/L (22-30); CHLORIDE 106 mmol/L (98-107); GLUCOSE 102 mg/dL (75-110); PHOSPHORUS 2.3 mg/dL (2.5-4.5); POTASSIUM 4.5 mmol/L (3.6-5.0); TOTAL PROTEIN 7.4 g/dL (6.3-8.2)
[2020-07-07 21:38] VITALS: BP 143/83
== END 2020-07-07 21:34 | disposition home or self-care (01) ==
LOC: ER 17:54
DX: G40.919 Epilepsy, unspecified, intractable, without status epilepticus (principal); R42 Dizziness and giddiness
CPT/HCPCS: 99284; 96361; 96375; 96365; 36415; 87086; 82962; 80307 ×2; 83735; 84100; 84703; 85025; 80053; 81001; J2060; J7040; J1953

== ENCOUNTER 2020-09-17 16:10 | Emergency (ER) | payer SELFPAY ==
--- NOTE | 2020-09-17 16:18 | ER Document Report ---
ED Medical Screen (RME) - General Stated Complaint: POSSIBLE SEIZURE Time Seen by Provider: 09/17/20 16:16 Mode of Arrival: Wheelchair Information source: Patient Notes: 30-year-old female patient with history of seizures presenting to the emergency department after having a seizure while in a store. Patient sister reports patient has not been compliant with antiseizure medications. Patient is postictal but able to answer some questions for us. I have greeted and performed a rapid initial assessment of this patient. A comprehensive ED assessment and evaluation of the patient, analysis of test results and completion of the medical decision making process will be conducted by additional ED providers. I have specifically instructed the patient or family members with the patient to immediately return to any nursing staff should anything change in the patient's condition or with their chief complaint. TRAVEL OUTSIDE OF THE [place] IN LAST 30 DAYS: No - Related Data Allergies/Adverse Reactions: sertraline HCl [From Zoloft] Allergy (Verified 01/15/20 12:31) pomogranate Allergy (Uncoded 10/13/19 11:09) white chocolate Allergy (Uncoded 10/13/19 11:09) Past Medical History - Social History Family history: Reviewed & Not Pertinent - Past Medical History Cardiac Medical History: Reports: Hx Hypertension - pre eclampsia Neurological Medical History: Reports: Hx Seizures - keppra Renal/ Medical History: Denies: Hx Peritoneal Dialysis Psychiatric Medical History: Reports: Hx Anxiety Past Surgical History: Denies: Hx Cholecystectomy - Immunizations Immunizations up to date: Yes Hx Diphtheria, Pertussis, Tetanus Vaccination: Yes
[2020-09-17 17:29] LABS: ALBUMIN 4.2 g/dL (3.5-5.0); ALKALINE PHOSPHATASE 82 U/L (38-126); ANION GAP 6 (5-19); ASPARTATE AMINO TRANSFERASE 22 U/L (14-36); BILIRUBIN,DIRECT 0.1 mg/dL (0.0-0.4); BILIRUBIN,TOTAL 0.4 mg/dL (0.2-1.3); BLOOD UREA NITROGEN 5 mg/dL (7-20); CALCIUM 9.3 mg/dL (8.4-10.2); CARBON DIOXIDE 26 mmol/L (22-30); CHLORIDE 104 mmol/L (98-107); GLUCOSE 105 mg/dL (75-110); POTASSIUM 4.2 mmol/L (3.6-5.0); TOTAL PROTEIN 7.3 g/dL (6.3-8.2)
[2020-09-17 17:30] LABS: ALCOHOL < 10 mg/dL (NONE DETECTED)
[2020-09-17 17:39] LABS: ABSOLUTE EOSINOPHILS # (AUTO) 0.1 10^3/uL (0.0-0.6); ABSOLUTE LYMPHOCYTES (AUTO) 1.7 10^3/uL (0.5-4.7); ABSOLUTE MONOCYTES (AUTO) 0.4 10^3/uL (0.1-1.4); ABSOLUTE NEUT (AUTO) 5.3 10^3/uL (1.7-8.2); BASOPHILS % (AUTO) 0.6 % (0-2); EOSINOPHILS % (AUTO) 0.9 % (0-6); HEMATOCRIT 42.6 % (36.0-47.0); HEMOGLOBIN 14.4 g/dL (12.0-15.5); LYMPHOCYTES % (AUTO) 22.6 % (13-45); MEAN CORPUSCULAR HEMOGLOBIN 31.6 pg (27.0-33.4); MEAN CORPUSCULAR HGB CONC 33.7 g/dL (32.0-36.0); MEAN CORPUSCULAR VOLUME 94 fl (80-97); MONOCYTES % (AUTO) 5.7 % (3-13); PLATELET COUNT 277 10^3/uL (150-450); RED BLOOD COUNT 4.56 10^6/uL (3.72-5.28); SEGMENTED NEUTROPHILS % (AUTO) 70.2 % (42-78); TOTAL CELLS COUNTED % (AUTO) 100 %; WHITE BLOOD COUNT 7.6 10^3/uL (4.0-10.5)
[2020-09-17] MEDS ORDERED: LEVETIRACETAM 500 MG TABLET PO ONE (18:15)
[2020-09-17] MEDS ORDERED: ONDANSETRON ODT 4 MG TAB (6 TAB/ER DISP) PO PRN (18:17)
--- NOTE | 2020-09-17 18:32 | ER Document Report ---
HPI - HPI Time Seen by Provider: 09/17/20 16:16 Pain Level: Denies Notes: 30-year-old female patient with history of seizures presenting to the emergency department after having a seizure while in a store. Patient sister reports patient has not been compliant with antiseizure medications. Patient is postictal but able to answer some questions for us. - ROS Systems Reviewed and Negative: Yes All other systems reviewed and negative - see HPI, seizure x1 with nausea - REPRODUCTIVE Reproductive: DENIES: : Past Medical History - General Information source: Patient - Social History Smoking Status: Former Smoker Drug Abuse: None Lives with: Alone Family History: Reviewed & Not Pertinent, Other - Aunt has seizures - Past Medical History Cardiac Medical History: Reports: Hx Hypertension - pre eclampsia Neurological Medical History: Reports: Hx Seizures - keppra Renal/ Medical History: Denies: Hx Peritoneal Dialysis Psychiatric Medical History: Reports: Hx Anxiety Past Surgical History: Denies: Hx Cholecystectomy - Immunizations Immunizations up to date: Yes Hx Diphtheria, Pertussis, Tetanus Vaccination: Yes Vertical Provider Document - CONSTITUTIONAL Notes: PHYSICAL EXAMINATION: GENERAL: Well-appearing, well-nourished and in no acute distress. HEAD: Atraumatic, normocephalic. EYES: Pupils equal round and reactive to light, extraocular movements intact, conjunctiva are normal. ENT: Nares patent, oropharynx clear without exudates. Moist mucous membranes. NECK: Normal range of motion, supple without lymphadenopathy LUNGS: Breath sounds clear to auscultation bilaterally and equal. No wheezes rales or rhonchi. HEART: Regular rate and rhythm without murmurs ABDOMEN: Soft, nontender, nondistended abdomen. No guarding, no rebound. No masses appreciated. Female : deferred Musculoskeletal: Normal range of motion, no pitting or edema. No cyanosis. NEUROLOGICAL: Cranial nerves grossly intact. Normal speech, normal gait. Normal sensory, motor exams PSYCH: Normal mood, normal affect. SKIN: Warm, Dry, normal turgor, no rashes or lesions noted. - INFECTION CONTROL TRAVEL OUTSIDE OF THE [place] IN LAST 30 DAYS: No Course - Re-evaluation Re-evalutation: Patient appears well, nontoxic, her work-up today has been reassuring. She was not able to provide a urine sample however she has no urinary symptoms. Her medications will be refilled. She was given information for both [facility] and [facility]. - Laboratory Results Result Diagrams: 09/17/20 16:22 09/17/20 16:22 Laboratory Results Interpreted: 09/17/20 16:22 Sodium 136.4 L BUN 5 L Critical Laboratory Results Reviewed: No Critical Results - Radiology Results Critical Radiology Results Reviewed: No Critical Results Discharge - Discharge Clinical Impression: Seizure, Medication refill Condition: Stable Disposition: HOME, SELF-CARE Additional Instructions: Your seizure medication was refilled today. Please call and try to establish care with a primary care provider. I have given you the phone number for [facility] and the [facility]. Prescriptions: Levetiracetam [Keppra 500 mg Tablet] 500 mg PO Q12 #60 tablet Ondansetron [Zofran Odt 4 mg Tablet] 1 - 2 tab PO Q4H PRN #15 tab.rapdis PRN Reason: For Nausea/Vomiting Referrals: [facility] [Outside] - Follow up as needed [facility] [Provider Group] - Follow up as needed
[2020-09-17 18:33] VITALS: BP 147/78
--- NOTE | 2020-09-17 19:55 | EKG REPORT ---
SEVERITY:- NORMAL ECG - SINUS RHYTHM : Confirmed by: Lubna Guzman MD 17-Sep-2020 19:53:50
== END 2020-09-17 18:34 | disposition home or self-care (01) ==
LOC: ER 16:10
DX: R56.9 Unspecified convulsions (principal); Z76.0 Encounter for issue of repeat prescription; Z91.14 Patient's other noncompliance with medication regimen; Z87.891 Personal history of nicotine dependence
CPT/HCPCS: 36415; 80053; 80307; 83735; 85025; 93005; 93010; 99284